=== PATIENT | female | born 1940 | race Caucasian/White ===

== ENCOUNTER 2019-05-17 21:06 | Emergency (ER) | payer MEDICARE ==
[~2019-05-17] VITALS: Ht 162.6 cm; Wt 100.0 kg
[~2019-05-17 21:06] MED LIST: AMLO10TA PO; FOLI1TAB16 PO; FURO20TA4 PO; GLIM4TAB4 PO; MAGN400C PO; MELO-102 PO; METF-316 PO; METO50TA17 PO; OMEG1CAP PO; PRED5TAB49 PO; [UNRECOGNIZED DRUG - CODE] PO
[2019-05-17 21:19] VITALS: BP 124/58
[2019-05-17 21:49] LABS: BASOPHILS # (AUTO) 0.1 X10'3 (0-0.2); EOSINOPHILS # (AUTO) 0.2 X10'3 (0-0.9); EOSINOPHILS % (AUTO) 1.7 % (0-6); HEMATOCRIT 39.7 % (35.0-45.0); HEMOGLOBIN 13.2 g/dl (12.0-16.0); LYMPHOCYTES # (AUTO) 4.7 X10'3 (1.1-4.8); LYMPHOCYTES % (AUTO) 33.4 % (21-51); MEAN CORPUSCULAR HEMOGLOBIN 33.3 PG (27.0-31.0); MEAN CORPUSCULAR HGB CONC 33.2 g/dL (33.0-36.5); MEAN CORPUSCULAR VOLUME 100.1 FL (78-98); MEAN PLATELET VOLUME 7.5 FL (7.4-10.4); MONOCYTES # (AUTO) 0.9 X10'3 (0-0.9); MONOCYTES % (AUTO) 6.2 % (2-12); NEUTROPHILS % (AUTO) 57.7 % (42-75); PLATELET COUNT 369 X10'3 (140-440); RED BLOOD COUNT 3.96 X10'6 (4.20-5.60); RED CELL DISTRIBUTION WIDTH 15.5 % (11.5-14.5)
[2019-05-17 22:01] LABS: ALANINE AMINOTRANSFERASE 49 U/L (12-78); ALBUMIN 3.2 G/DL (3.4-5.0); ALBUMIN/GLOBULIN RATIO 0.7 (1.1-1.5); ALKALINE PHOSPHATASE 103 IU/L (46-116); ANION GAP 11 (8-16); ASPARTATE AMINO TRANSFERASE 25 U/L (10-37); BILIRUBIN,TOTAL 0.6 MG/DL (0.1-1.0); BLOOD UREA NITROGEN 27 MG/DL (7-18); BUN/CREATININE RATIO 22.5 (6.6-38.0); CALCIUM 9.9 MG/DL (8.5-10.1); CHLORIDE 98 MMOL/L (99-107); GLUCOSE 204 MG/DL (70-104); LIPASE 305 U/L (73-393); POTASSIUM 4.2 MMOL/L (3.5-5.1); SODIUM 134 MMOL/L (135-145); TOTAL PROTEIN 7.5 G/DL (6.4-8.2); eGFR 44 ML/MIN
[2019-05-17 22:09] LABS: CLARITY,URINE CLOUDY (Clear); COLOR,URINE YELLOW (Yellow); GLUCOSE, URINE NEGATIVE (Neg); KETONES,URINE TRACE mg/dl (Neg); LEUKOCYTE ESTERASE ,URINE MODERATE (Neg); NITRITES, URINE POSITIVE (Neg); OCCULT BLOOD,URINE MODERATE (Neg); PH,URINE 5.5 (4.8-8.0); PROTEIN,URINE 100 mg/dl (Neg); UA COLLECTION TYPE STRAIGHT CATH; UROBILINOGEN,URINE 0.2 E.U/dL (0.2-1.0)
[2019-05-17 22:15] LABS: BACTERIA,URINE 3+ /HPF (Neg); RBC,URINE TNTC /HPF (0-2); SQUAMOUS EPITHELIAL CELL,UR FEW /LPF (FEW)
[2019-05-17] MEDS ORDERED: CefTRIAXone 2gm/D5W 50ml 50 ML IV ONE (22:15)
[2019-05-17] MEDS ORDERED: CefTRIAXone 1000mg IM Kit (w/lidocaine diluent) IM ONE (22:20)
[2019-05-17] MEDS ORDERED: SULF1TAB49 PO (22:31)
== END 2019-05-17 22:39 | disposition home or self-care (01) ==
LOC: ER 21:06
DX: N39.0 Urinary tract infection, site not specified (principal); E78.00 Pure hypercholesterolemia, unspecified; I10 Essential (primary) hypertension; E11.9 Type 2 diabetes mellitus without complications; Z79.899 Other long term (current) drug therapy; Z87.440 Personal history of urinary (tract) infections
CPT/HCPCS: 36415; 80053; 81001; 83690; 85025; 87088; 96372; 99283; J0696; P9612

== ENCOUNTER 2019-06-10 13:11 | Inpatient (IN) | payer MEDICARE, OTHER ==
[~2019-06-10] VITALS: Ht 162.6 cm; Wt 102.0 kg
[2019-06-10 13:49] LABS: BASOPHILS # (AUTO) 0.1 X10'3 (0-0.2); BASOPHILS % (AUTO) 0.7 % (0-1); EOSINOPHILS # (AUTO) 0.1 X10'3 (0-0.9); EOSINOPHILS % (AUTO) 1.1 % (0-6); HEMOGLOBIN 12.7 g/dl (12.0-16.0); LYMPHOCYTES # (AUTO) 2.4 X10'3 (1.1-4.8); MEAN CORPUSCULAR HEMOGLOBIN 32.7 PG (27.0-31.0); MEAN CORPUSCULAR HGB CONC 33.4 g/dL (33.0-36.5); MEAN PLATELET VOLUME 7.4 FL (7.4-10.4); MONOCYTES # (AUTO) 0.7 X10'3 (0-0.9); MONOCYTES % (AUTO) 5.5 % (2-12); NEUTROPHILS # (AUTO) 9.4 X10'3 (1.8-7.7); NEUTROPHILS % (AUTO) 73.7 % (42-75); PLATELET COUNT 411 X10'3 (140-440); RED BLOOD COUNT 3.88 X10'6 (4.20-5.60); RED CELL DISTRIBUTION WIDTH 15.2 % (11.5-14.5); WHITE BLOOD COUNT 12.8 X10'3 (4.5-11.0)
[2019-06-10] MEDS ORDERED: CefTRIAXone 2gm/D5W 50ml 50 ML IV ONE (14:00)
[2019-06-10] MEDS ORDERED: morphine 4 MG/ML inj SYRINge IV ONE (14:00)
[2019-06-10] MEDS ORDERED: normal saline 1000ML IV soln IV ONE (14:00)
[2019-06-10] MEDS ORDERED: ondansetron/PF 4mg/2ml inj IV ONE (14:00)
[2019-06-10 14:05] LABS: CLARITY,URINE SLIGHTLY CLOUDY (Clear); COLOR,URINE STRAW (Yellow); GLUCOSE, URINE >=1000 mg/dl (Neg); KETONES,URINE NEGATIVE (Neg); LEUKOCYTE ESTERASE ,URINE NEGATIVE (Neg); NITRITES, URINE POSITIVE (Neg); OCCULT BLOOD,URINE NEGATIVE (Neg); PH,URINE 5.5 (4.8-8.0); PROTEIN,URINE TRACE mg/dl (Neg); UROBILINOGEN,URINE 0.2 E.U/dL (0.2-1.0)
[2019-06-10 14:08] LABS: PARTIAL THROMBOPLASTIN TIME 23 SECONDS (22-32)
[2019-06-10 14:08] LABS: UA COLLECTION TYPE OTHER
[2019-06-10 14:09] LABS: ALANINE AMINOTRANSFERASE 23 U/L (12-78); ALBUMIN 2.8 G/DL (3.4-5.0); ALBUMIN/GLOBULIN RATIO 0.7 (1.1-1.5); ALKALINE PHOSPHATASE 119 IU/L (46-116); ANION GAP 14 (8-16); ASPARTATE AMINO TRANSFERASE 21 U/L (10-37); BILIRUBIN,TOTAL 0.6 MG/DL (0.1-1.0); BLOOD UREA NITROGEN 26 MG/DL (7-18); BUN/CREATININE RATIO 23.4 (6.6-38.0); CALCIUM 9.5 MG/DL (8.5-10.1); CHLORIDE 98 MMOL/L (99-107); CREATININE 1.11 MG/DL (0.40-0.90); GLUCOSE 327 MG/DL (70-104); POTASSIUM 4.3 MMOL/L (3.5-5.1); SODIUM 132 MMOL/L (135-145); TOTAL CARBON DIOXIDE 20.5 MMOL/L (24-32); eGFR 48 ML/MIN
[2019-06-10 14:11] LABS: BACTERIA,URINE 4+ /HPF (Neg); MUCUS STRANDS NONE SEEN /LPF (Neg); RBC,URINE NONE SEEN /HPF (0-2); SQUAMOUS EPITHELIAL CELL,UR FEW /LPF (FEW); WBC CLUMPS,URINE MODERATE /HPF (NEGATIVE); WBC,URINE 30-50 /HPF (0-4)
[2019-06-10] MEDS ORDERED: magnesium 2GM in 50ml NS 50 ML IV ONE (14:40)
[2019-06-10] MEDS ORDERED: mag hydrox/Alum hydrox/simeth 30ml oral suspension PO PRN (14:50)
[2019-06-10] MEDS ORDERED: methylPREDNISolone sod succ 125mg/2ml vial IV ONE (14:50)
[2019-06-10] MEDS ORDERED: potassium Cl 20 mEq SR tablet PO PRN ×2 (14:50)
[2019-06-10] MEDS ORDERED: acetaminophen 325mg tablet PO PRN (14:50)
[2019-06-10] MEDS ORDERED: glucagon, human recombinant 1mg kit SUBCUT PRN (14:50)
[2019-06-10] MEDS ORDERED: ipratropium/albuterol 3ml nebule NEB PRN (14:50)
[2019-06-10] MEDS ORDERED: dextrose 50%-water 50ml dispensing syringe IV PRN ×2 (14:50)
[2019-06-10] MEDS ORDERED: ondansetron/PF 4mg/2ml inj IV PRN (14:50)
[2019-06-10] MEDS ORDERED: MESSAGE TO PHARMACY PO ONE (14:50)
[2019-06-10] MEDS ORDERED: magnesium 4gm in 100ml NS 100 ML IV PRN (14:50)
[2019-06-10] MEDS ORDERED: potassium CL 10mEq/100ml bag 100 ML IV PRN ×2 (14:50)
[2019-06-10] MEDS ORDERED: magnesium 2GM in 50ml NS 50 ML IV PRN (14:50)
[2019-06-10] MEDS ORDERED: dextrose ORAL solution 15 GM/59 ML bottle PO PRN ×2 (14:50)
[2019-06-10] MEDS ORDERED: PRED5TAB49 PO (14:53)
[2019-06-10] MEDS ORDERED: ALLO300T2 PO (14:53)
[2019-06-10] MEDS ORDERED: ONDA8TAB6 PO (14:53)
[2019-06-10] MEDS ORDERED: DULO60CA65 PO (14:53)
[2019-06-10] MEDS ORDERED: METH2.5T PO (14:53)
[2019-06-10] MEDS ORDERED: TELM80TA9 PO (14:53)
[2019-06-10] MEDS ORDERED: METO50TA16 PO (14:53)
[2019-06-10] MEDS ORDERED: INSU200I4 SQ (14:53)
[2019-06-10] MEDS ORDERED: MELO-102 PO (14:53)
[2019-06-10] MEDS ORDERED: ADAL40PE SUBCUT (14:53)
[2019-06-10] MEDS ORDERED: AMLO10TA13 PO (14:53)
[2019-06-10] MEDS ORDERED: OMEG-107 PO (14:53)
[2019-06-10] MEDS ORDERED: CYAN1TAB16 PO ×2 (14:53→15:05)
[2019-06-10] MEDS ORDERED: ondansetron 4mg rapidly disintigrating tab PO PRN (15:00)
[2019-06-10 15:07] LABS: D-DIMER 1.46 MG/L FEU (0-0.50)
[2019-06-10] MEDS ORDERED: FOLI0.4T14 PO (15:07)
--- NOTE | 2019-06-10 15:38 | NUR ---
ATTEMPTED TO GIVE REPORT TO NURSE ON PCU. NURSE IS UNAVAILABLE AT THIS TIME.
--- NOTE | 2019-06-10 16:00 | NUR ---
TC REPORT TO CHRIS RAZA ON PCU.
[2019-06-10 16:18] LABS: ALBUMIN 2.5 G/DL (3.4-5.0); ANION GAP 15 (8-16); BLOOD UREA NITROGEN 25 MG/DL (7-18); BUN/CREATININE RATIO 24.8 (6.6-38.0); CALCIUM 9.2 MG/DL (8.5-10.1); CHLORIDE 99 MMOL/L (99-107); CREATININE 1.01 MG/DL (0.40-0.90); GLUCOSE 311 MG/DL (70-104); POTASSIUM 4.2 MMOL/L (3.5-5.1); SODIUM 132 MMOL/L (135-145); TOTAL CARBON DIOXIDE 18.1 MMOL/L (24-32); eGFR 53 ML/MIN
[2019-06-10 16:49] LABS: HEMOGLOBIN A1C 8.4 % (4.5-6.2)
[2019-06-10] MEDS: normal saline 1000ml 1,000 ML IV SCH (16:54)
[2019-06-10 16:57] VITALS: BP 167/85
[2019-06-10] MEDS ORDERED: iohexol 350MG/ML 100ml bottle IV ONE (17:01)
--- NOTE | 2019-06-10 17:20 | NUR ---
Patient admitted to room PCU 3021 from ED. I have received report from Anastacia PEREZ and had the opportunity to ask questions and assume patient care. Pt transferred from [facility] to bed using FWW, MRSA swab collected, pt is in bed with family at bedside, will continue to monitor.
[2019-06-10 18:00] VITALS: BP 158/76
--- NOTE | 2019-06-10 18:27 | NUR ---
Patient in room PCU 3021. I have received report from Esperanza PEREZ and had the opportunity to ask questions and assume patient care.
--- NOTE | 2019-06-10 18:29 | NUR ---
Problems reprioritized. Patient report given, questions answered & plan of care reviewed with Malia PEREZ.
[2019-06-10] MEDS: insulin Lispro (HumaLOG) vial - multi-dose SQ SCH ×2 (19:15→21:24)
[2019-06-10] MEDS: metoprolol tartrate 50mg tablet PO SCH (19:41)
[2019-06-10] MEDS: omega-3 acid ethyl esters 1GM capsule PO SCH (19:41)
[2019-06-10] MEDS: insulin glargine (Lantus) pen - multi-dose SQ SCH (21:22)
[2019-06-10 22:00] VITALS: BP 123/67
[2019-06-11] MEDS: normal saline 1000ml 1,000 ML IV SCH (01:32)
[2019-06-11 01:37] LABS: BASOPHILS % (AUTO) 0.2 % (0-1); EOSINOPHILS % (AUTO) 0 % (0-6); HEMATOCRIT 34.8 % (35.0-45.0); HEMOGLOBIN 11.9 g/dl (12.0-16.0); LYMPHOCYTES # (AUTO) 1.3 X10'3 (1.1-4.8); LYMPHOCYTES % (AUTO) 14.8 % (21-51); MEAN CORPUSCULAR HEMOGLOBIN 32.9 PG (27.0-31.0); MEAN CORPUSCULAR HGB CONC 34.1 g/dL (33.0-36.5); MEAN CORPUSCULAR VOLUME 96.5 FL (78-98); MEAN PLATELET VOLUME 7.5 FL (7.4-10.4); MONOCYTES # (AUTO) 0.1 X10'3 (0-0.9); MONOCYTES % (AUTO) 1.4 % (2-12); NEUTROPHILS # (AUTO) 7.5 X10'3 (1.8-7.7); NEUTROPHILS % (AUTO) 83.6 % (42-75); PLATELET COUNT 408 X10'3 (140-440); RED BLOOD COUNT 3.61 X10'6 (4.20-5.60); RED CELL DISTRIBUTION WIDTH 14.7 % (11.5-14.5)
[2019-06-11 01:50] LABS: ALANINE AMINOTRANSFERASE 22 U/L (12-78); ALBUMIN 2.4 G/DL (3.4-5.0); ALBUMIN/GLOBULIN RATIO 0.6 (1.1-1.5); ALKALINE PHOSPHATASE 116 IU/L (46-116); ANION GAP 13 (8-16); ASPARTATE AMINO TRANSFERASE 22 U/L (10-37); BILIRUBIN,TOTAL 0.4 MG/DL (0.1-1.0); BLOOD UREA NITROGEN 23 MG/DL (7-18); BUN/CREATININE RATIO 19.5 (6.6-38.0); CALCIUM 9.3 MG/DL (8.5-10.1); CHLORIDE 99 MMOL/L (99-107); CREATININE 1.18 MG/DL (0.40-0.90); GLUCOSE 317 MG/DL (70-104); POTASSIUM 4.8 MMOL/L (3.5-5.1); SODIUM 134 MMOL/L (135-145); TOTAL CARBON DIOXIDE 21.7 MMOL/L (24-32); TOTAL PROTEIN 6.5 G/DL (6.4-8.2); eGFR 44 ML/MIN
[2019-06-11 01:53] LABS: MAGNESIUM 1.5 MG/DL (1.5-2.4)
[2019-06-11 02:00] VITALS: BP_SYST 119; BP_SYST 127; BP_DIAS 71; BP_DIAS 75
[2019-06-11 06:00] VITALS: BP 145/65
--- NOTE | 2019-06-11 06:20 | NUR ---
Problems reprioritized. Patient report given, questions answered & plan of care reviewed with Esperanza PEREZ.
--- NOTE | 2019-06-11 06:48 | NUR ---
Patient in room PCU 3021. I have received report from Malia PEREZ and had the opportunity to ask questions and assume patient care.
[2019-06-11] MEDS: omega-3 acid ethyl esters 1GM capsule PO SCH ×2 (07:39→19:18)
[2019-06-11] MEDS: predniSONE 20 mg tablet PO SCH (07:39)
[2019-06-11] MEDS: duloxetine 30mg CAPSULE.DR PO SCH (07:40)
[2019-06-11] MEDS: allopurinol 300 MG tablet PO SCH (07:40)
[2019-06-11] MEDS: metoprolol tartrate 50mg tablet PO SCH ×2 (07:40→19:17)
[2019-06-11] MEDS: folic acid 1mg tablet PO SCH (07:40)
[2019-06-11] MEDS: losartan 50mg tablet PO SCH (07:41)
[2019-06-11] MEDS: amLODIPine 5mg tablet PO SCH (07:41)
[2019-06-11] MEDS: enoxaparin 40mg/0.4ml syringe SQ SCH (07:42)
[2019-06-11] MEDS: naproxen 500mg tablet PO SCH ×2 (07:50→19:17)
[2019-06-11] MEDS: K and/or MAG REPLACEMENT MC SCH (07:51)
[2019-06-11] MEDS ORDERED: PYRIDOXINE PO SCH (08:00)
[2019-06-11] MEDS ORDERED: CYANOCOBALAMIN PO SCH (08:00)
[2019-06-11] MEDS ORDERED: [UNRECOGNIZED DRUG - OTHER] PO SCH (08:00)
[2019-06-11] MEDS ORDERED: CefTRIAXone/D5W-Rocephin 1gm 50 ML IV SCH (08:00)
[2019-06-11] MEDS: insulin Lispro (HumaLOG) vial - multi-dose SQ SCH ×4 (08:21→21:32)
[2019-06-11 11:00] VITALS: BP 148/72
--- NOTE | 2019-06-11 12:33 | NUR ---
PAGER ID: [phone] MESSAGE: [phone] Mary Suero: CARAI Most recent Lactic Acid is 4.7. Thanks Esperanza [phone]
--- NOTE | 2019-06-11 14:57 | NUR ---
PAGER ID: [phone] MESSAGE: [phone] Mary Suero: CARAI Most recent Lactic is 5.2, pt is asymptomatic denies any pain or discomfort. Thanks Esperanza [phone]
[2019-06-11 15:00] VITALS: BP 129/58
[2019-06-11] MEDS: sodium chloride 0.45% 1,000 ML IV SCH (15:18)
[2019-06-11 18:00] VITALS: BP 143/63
--- NOTE | 2019-06-11 18:26 | NUR ---
DM consult; patient has A1c of 8.4, patient seen at bedside and given written DM education consult with verbal review and referral to outpatient DM education class on thursday. Addendum: 06/11/19 at [address] Amended: Links added.
--- NOTE | 2019-06-11 18:28 | NUR ---
Problems reprioritized. Patient report given, questions answered & plan of care reviewed with Malia PEREZ.
--- NOTE | 2019-06-11 18:30 | NUR ---
Patient in room PCU 3021. I have received report from Esperanza PEREZ and had the opportunity to ask questions and assume patient care.
[2019-06-11] MEDS: lactobacillus rhamnosus 10,000 MMU CELLS/CAPSULE PO SCH (19:17)
[2019-06-11] MEDS: insulin glargine (Lantus) pen - multi-dose SQ SCH (21:29)
[2019-06-11] MEDS: temazepam 15mg capsule PO PRN (21:33)
[2019-06-11 22:00] VITALS: BP 140/70
[2019-06-12] MEDS: sodium chloride 0.45% 1,000 ML IV SCH ×3 (01:45→21:05)
[2019-06-12 02:00] VITALS: BP 139/70
[2019-06-12 05:13] LABS: BASOPHILS # (AUTO) 0.2 X10'3 (0-0.2); EOSINOPHILS # (AUTO) 0.1 X10'3 (0-0.9); EOSINOPHILS % (AUTO) 0.6 % (0-6); HEMATOCRIT 36.1 % (35.0-45.0); LYMPHOCYTES # (AUTO) 4.1 X10'3 (1.1-4.8); MEAN CORPUSCULAR HEMOGLOBIN 32.6 PG (27.0-31.0); MEAN CORPUSCULAR HGB CONC 33.3 g/dL (33.0-36.5); MEAN CORPUSCULAR VOLUME 97.8 FL (78-98); MEAN PLATELET VOLUME 7.5 FL (7.4-10.4); MONOCYTES # (AUTO) 1.2 X10'3 (0-0.9); MONOCYTES % (AUTO) 6.8 % (2-12); NEUTROPHILS # (AUTO) 12.8 X10'3 (1.8-7.7); NEUTROPHILS % (AUTO) 69.6 % (42-75); PLATELET COUNT 454 X10'3 (140-440); RED BLOOD COUNT 3.69 X10'6 (4.20-5.60); RED CELL DISTRIBUTION WIDTH 15.1 % (11.5-14.5); WHITE BLOOD COUNT 18.4 X10'3 (4.5-11.0)
[2019-06-12 05:29] LABS: ALANINE AMINOTRANSFERASE 19 U/L (12-78); ALBUMIN 2.6 G/DL (3.4-5.0); ALBUMIN/GLOBULIN RATIO 0.7 (1.1-1.5); ALKALINE PHOSPHATASE 102 IU/L (46-116); ANION GAP 10 (8-16); ASPARTATE AMINO TRANSFERASE 18 U/L (10-37); BILIRUBIN,TOTAL 0.4 MG/DL (0.1-1.0); BLOOD UREA NITROGEN 30 MG/DL (7-18); BUN/CREATININE RATIO 35.3 (6.6-38.0); CALCIUM 9.7 MG/DL (8.5-10.1); CHLORIDE 102 MMOL/L (99-107); CREATININE 0.85 MG/DL (0.40-0.90); GLUCOSE 147 MG/DL (70-104); MAGNESIUM 1.4 MG/DL (1.5-2.4); POTASSIUM 3.9 MMOL/L (3.5-5.1); SODIUM 135 MMOL/L (135-145); TOTAL PROTEIN 6.4 G/DL (6.4-8.2); eGFR 65 ML/MIN
--- NOTE | 2019-06-12 06:16 | NUR ---
Problems reprioritized. Patient report given, questions answered & plan of care reviewed with Dinora PEREZ.
[2019-06-12 07:00] VITALS: BP 147/56
--- NOTE | 2019-06-12 07:01 | NUR ---
Patient in room PCU 3021. I have received report from Selena and had the opportunity to ask questions and assume patient care.
--- NOTE | 2019-06-12 07:45 | NUR ---
LAB VALUE RECEIVED FROM MICRO/LAB, REPORTED TO PRIMARY RN.
--- NOTE | 2019-06-12 08:11 | NUR ---
Notified Dr. Worthy of notification of MDRO from the lab within 10 minutes of call. MD reviewing antibiotic therapy at this time. Iso sign posted, patient and family at bedside educated. Will continue to monitor.
[2019-06-12] MEDS: omega-3 acid ethyl esters 1GM capsule PO SCH ×2 (08:20→19:10)
[2019-06-12] MEDS: naproxen 500mg tablet PO SCH ×2 (08:20→19:10)
[2019-06-12] MEDS: magnesium Cl slow-release 64mg tablet PO PRN ×2 (08:21→19:11)
[2019-06-12] MEDS: lactobacillus rhamnosus 10,000 MMU CELLS/CAPSULE PO SCH ×2 (08:21→19:10)
[2019-06-12] MEDS: duloxetine 30mg CAPSULE.DR PO SCH (08:21)
[2019-06-12] MEDS: allopurinol 300 MG tablet PO SCH (08:21)
[2019-06-12] MEDS: predniSONE 20 mg tablet PO SCH (08:21)
[2019-06-12] MEDS: folic acid 1mg tablet PO SCH (08:21)
[2019-06-12] MEDS: losartan 50mg tablet PO SCH (08:22)
[2019-06-12] MEDS: amLODIPine 5mg tablet PO SCH (08:22)
[2019-06-12] MEDS: enoxaparin 40mg/0.4ml syringe SQ SCH (08:22)
[2019-06-12] MEDS: K and/or MAG REPLACEMENT MC SCH (08:32)
[2019-06-12] MEDS: metoprolol tartrate 50mg tablet PO SCH ×2 (09:49→19:11)
[2019-06-12] MEDS: ciprofloxacin lact 400MG/200ML 200 ML IV SCH ×2 (09:49→19:10)
[2019-06-12] MEDS: insulin Lispro (HumaLOG) vial - multi-dose SQ SCH ×3 (10:48→21:26)
[2019-06-12 11:00] VITALS: BP 140/78
[2019-06-12 15:00] VITALS: BP 164/89
--- NOTE | 2019-06-12 15:00 | NUR ---
Patient in room PCU 3021. I have received report from CHRIS Farias and had the opportunity to ask questions and assume patient care.
--- NOTE | 2019-06-12 18:12 | NUR ---
Problems reprioritized. Patient report given, questions answered & plan of care reviewed with CHRIS Issa.
--- NOTE | 2019-06-12 18:29 | NUR ---
Patient in room PCU 3021. I have received report from CHRIS Black and had the opportunity to ask questions and assume patient care. Patient awake for bedside report. 1/2 NS infusing at 100 mL/hr per provider order. On room air and stable at this time. Will continue to monitor closely.
[2019-06-12 19:00] VITALS: BP_SYST 152
[2019-06-12] MEDS: insulin glargine (Lantus) pen - multi-dose SQ SCH (21:25)
[2019-06-12] MEDS: temazepam 15mg capsule PO PRN (21:26)
[2019-06-12 23:00] VITALS: BP 118/68
[2019-06-13 03:00] VITALS: BP 133/72
[2019-06-13 06:20] LABS: BASOPHILS # (AUTO) 0.1 X10'3 (0-0.2); BASOPHILS % (AUTO) 0.3 % (0-1); EOSINOPHILS # (AUTO) 0.2 X10'3 (0-0.9); EOSINOPHILS % (AUTO) 1.3 % (0-6); HEMATOCRIT 36.5 % (35.0-45.0); HEMOGLOBIN 12.2 g/dl (12.0-16.0); LYMPHOCYTES # (AUTO) 4.2 X10'3 (1.1-4.8); LYMPHOCYTES % (AUTO) 22.7 % (21-51); MEAN CORPUSCULAR HEMOGLOBIN 32.6 PG (27.0-31.0); MEAN CORPUSCULAR HGB CONC 33.4 g/dL (33.0-36.5); MEAN CORPUSCULAR VOLUME 97.7 FL (78-98); MEAN PLATELET VOLUME 7.7 FL (7.4-10.4); MONOCYTES # (AUTO) 1.8 X10'3 (0-0.9); MONOCYTES % (AUTO) 9.4 % (2-12); NEUTROPHILS # (AUTO) 12.4 X10'3 (1.8-7.7); NEUTROPHILS % (AUTO) 66.3 % (42-75); PLATELET COUNT 411 X10'3 (140-440); RED BLOOD COUNT 3.73 X10'6 (4.20-5.60); RED CELL DISTRIBUTION WIDTH 14.7 % (11.5-14.5); WHITE BLOOD COUNT 18.7 X10'3 (4.5-11.0)
--- NOTE | 2019-06-13 06:23 | NUR ---
Problems reprioritized. Patient report given, questions answered & plan of care reviewed with CHRIS Hamilton and CHRIS Espinal.
[2019-06-13 06:24] LABS: ALANINE AMINOTRANSFERASE 18 U/L (12-78); ALBUMIN 2.5 G/DL (3.4-5.0); ALBUMIN/GLOBULIN RATIO 0.7 (1.1-1.5); ALKALINE PHOSPHATASE 98 IU/L (46-116); ANION GAP 10 (8-16); ASPARTATE AMINO TRANSFERASE 14 U/L (10-37); BILIRUBIN,TOTAL 0.4 MG/DL (0.1-1.0); BLOOD UREA NITROGEN 30 MG/DL (7-18); BUN/CREATININE RATIO 33.7 (6.6-38.0); CALCIUM 9.7 MG/DL (8.5-10.1); CHLORIDE 100 MMOL/L (99-107); CREATININE 0.89 MG/DL (0.40-0.90); GLUCOSE 130 MG/DL (70-104); MAGNESIUM 1.4 MG/DL (1.5-2.4); POTASSIUM 3.7 MMOL/L (3.5-5.1); SODIUM 132 MMOL/L (135-145); TOTAL CARBON DIOXIDE 21.9 MMOL/L (24-32); TOTAL PROTEIN 6.2 G/DL (6.4-8.2); eGFR 62 ML/MIN
--- NOTE | 2019-06-13 06:38 | NUR ---
Patient in room PCU 3021. I have received report from CHRIS Issa and had the opportunity to ask questions and assume patient care.
--- NOTE | 2019-06-13 06:40 | NUR ---
Patient in room PCU 3021. I have received report from Luis Manuel PEREZ and had the opportunity to ask questions and assume patient care. Patient asleep in bed. In no acute distress. Will continue to monitor.
[2019-06-13 07:00] VITALS: BP 130/75
[2019-06-13] MEDS: naproxen 500mg tablet PO SCH ×2 (07:30→19:53)
[2019-06-13] MEDS: ciprofloxacin lact 400MG/200ML 200 ML IV SCH ×2 (07:30→19:53)
[2019-06-13] MEDS: folic acid 1mg tablet PO SCH (07:30)
[2019-06-13] MEDS: predniSONE 20 mg tablet PO SCH (07:30)
[2019-06-13] MEDS: lactobacillus rhamnosus 10,000 MMU CELLS/CAPSULE PO SCH ×2 (07:30→19:53)
[2019-06-13] MEDS: allopurinol 300 MG tablet PO SCH (07:30)
[2019-06-13] MEDS: omega-3 acid ethyl esters 1GM capsule PO SCH ×2 (07:31→19:53)
[2019-06-13] MEDS: duloxetine 30mg CAPSULE.DR PO SCH (07:31)
[2019-06-13] MEDS: enoxaparin 40mg/0.4ml syringe SQ SCH (07:31)
[2019-06-13] MEDS: amLODIPine 5mg tablet PO SCH (07:32)
[2019-06-13] MEDS: metoprolol tartrate 50mg tablet PO SCH ×2 (07:32→19:57)
[2019-06-13] MEDS: losartan 50mg tablet PO SCH (07:32)
[2019-06-13] MEDS: K and/or MAG REPLACEMENT MC SCH (07:42)
[2019-06-13] MEDS: insulin Lispro (HumaLOG) vial - multi-dose SQ SCH ×3 (09:35→18:46)
[2019-06-13 11:00] VITALS: BP_SYST 114; BP_DIAS 7; BP_DIAS 70
[2019-06-13] MEDS: sodium chloride 0.45% 1,000 ML IV SCH ×2 (12:04→19:11)
[2019-06-13 15:00] VITALS: BP 148/75
[2019-06-13 18:00] VITALS: BP 123/71
--- NOTE | 2019-06-13 18:37 | NUR ---
Problems reprioritized. Patient report given, questions answered & plan of care reviewed with CHRIS Edwards.
--- NOTE | 2019-06-13 18:38 | NUR ---
Problems reprioritized. Patient report given, questions answered & plan of care reviewed with Grace PEREZ. Patient stable at transfer of care.
[2019-06-13] MEDS: docusate sod 100mg capsule PO PRN (21:01)
[2019-06-13] MEDS: temazepam 15mg capsule PO PRN (21:01)
[2019-06-13] MEDS: insulin glargine (Lantus) pen - multi-dose SQ SCH (21:07)
[2019-06-13 23:00] VITALS: BP 118/55
[2019-06-14] MEDS: sodium chloride 0.45% 1,000 ML IV SCH (00:13)
[2019-06-14 02:00] VITALS: BP 128/74
--- NOTE | 2019-06-14 06:04 | NUR ---
Report given to Joy PEREZ.
--- NOTE | 2019-06-14 06:15 | NUR ---
Patient in room PCU 3021. I have received report from CHRIS Long and had the opportunity to ask questions and assume patient care.
[2019-06-14 06:20] LABS: BASOPHILS # (AUTO) 0.1 X10'3 (0-0.2); BASOPHILS % (AUTO) 0.5 % (0-1); EOSINOPHILS # (AUTO) 0.3 X10'3 (0-0.9); EOSINOPHILS % (AUTO) 2.1 % (0-6); HEMATOCRIT 35.3 % (35.0-45.0); HEMOGLOBIN 11.7 g/dl (12.0-16.0); LYMPHOCYTES # (AUTO) 4.3 X10'3 (1.1-4.8); LYMPHOCYTES % (AUTO) 26.8 % (21-51); MEAN CORPUSCULAR HEMOGLOBIN 32.5 PG (27.0-31.0); MEAN CORPUSCULAR HGB CONC 33.1 g/dL (33.0-36.5); MEAN CORPUSCULAR VOLUME 98.1 FL (78-98); MEAN PLATELET VOLUME 7.7 FL (7.4-10.4); MONOCYTES # (AUTO) 1.7 X10'3 (0-0.9); MONOCYTES % (AUTO) 10.3 % (2-12); NEUTROPHILS # (AUTO) 9.7 X10'3 (1.8-7.7); NEUTROPHILS % (AUTO) 60.3 % (42-75); PLATELET COUNT 387 X10'3 (140-440); RED CELL DISTRIBUTION WIDTH 15.1 % (11.5-14.5); WHITE BLOOD COUNT 16.1 X10'3 (4.5-11.0)
--- NOTE | 2019-06-14 06:29 | NUR ---
Patient in room PCU 3021. I have received report from Grace PEREZ and had the opportunity to ask questions and assume patient care. Patient up to toilet with nursing staff. All immediate needs met at this time.
[2019-06-14 07:00] VITALS: BP 119/59
[2019-06-14 07:07] LABS: ALANINE AMINOTRANSFERASE 15 U/L (12-78); ALBUMIN 2.4 G/DL (3.4-5.0); ALBUMIN/GLOBULIN RATIO 0.7 (1.1-1.5); ALKALINE PHOSPHATASE 91 IU/L (46-116); ANION GAP 9 (8-16); ASPARTATE AMINO TRANSFERASE 14 U/L (10-37); BILIRUBIN,TOTAL 0.4 MG/DL (0.1-1.0); BLOOD UREA NITROGEN 31 MG/DL (7-18); BUN/CREATININE RATIO 33.3 (6.6-38.0); CALCIUM 9.8 MG/DL (8.5-10.1); CHLORIDE 102 MMOL/L (99-107); CREATININE 0.93 MG/DL (0.40-0.90); GLUCOSE 134 MG/DL (70-104); MAGNESIUM 1.3 MG/DL (1.5-2.4); POTASSIUM 4.3 MMOL/L (3.5-5.1); SODIUM 133 MMOL/L (135-145); TOTAL CARBON DIOXIDE 22.5 MMOL/L (24-32); eGFR 58 ML/MIN
[2019-06-14] MEDS ORDERED: magnesium 2GM in 50ml NS 50 ML IV PRN (07:25)
[2019-06-14] MEDS ORDERED: potassium Cl 20 mEq SR tablet PO PRN ×2 (07:25)
[2019-06-14] MEDS ORDERED: magnesium 4gm in 100ml NS 100 ML IV PRN (07:25)
[2019-06-14] MEDS ORDERED: magnesium Cl slow-release 64mg tablet PO PRN (07:25)
[2019-06-14] MEDS ORDERED: potassium CL 10mEq/100ml bag 100 ML IV PRN ×2 (07:25)
[2019-06-14] MEDS ORDERED: predniSONE 5mg tablet PO SCH (08:00)
[2019-06-14] MEDS: K and/or MAG REPLACEMENT MC SCH (08:00)
[2019-06-14] MEDS: ciprofloxacin lact 400MG/200ML 200 ML IV SCH (08:56)
[2019-06-14] MEDS: naproxen 500mg tablet PO SCH (08:56)
[2019-06-14] MEDS: amLODIPine 5mg tablet PO SCH (08:56)
[2019-06-14] MEDS: metoprolol tartrate 50mg tablet PO SCH (08:56)
[2019-06-14] MEDS: losartan 50mg tablet PO SCH (08:57)
[2019-06-14] MEDS: allopurinol 300 MG tablet PO SCH (08:57)
[2019-06-14] MEDS: lactobacillus rhamnosus 10,000 MMU CELLS/CAPSULE PO SCH (08:57)
[2019-06-14] MEDS: folic acid 1mg tablet PO SCH (08:57)
[2019-06-14] MEDS: duloxetine 30mg CAPSULE.DR PO SCH (08:57)
[2019-06-14] MEDS: enoxaparin 40mg/0.4ml syringe SQ SCH (08:58)
[2019-06-14] MEDS: omega-3 acid ethyl esters 1GM capsule PO SCH (09:02)
[2019-06-14] MEDS: docusate sod 100mg capsule PO PRN (09:02)
[2019-06-14] MEDS: insulin Lispro (HumaLOG) vial - multi-dose SQ SCH (09:18)
--- NOTE | 2019-06-14 09:29 | NUR ---
New order from Dr. Worthy: Nystatin powder
[2019-06-14 11:00] VITALS: BP 111/60
[2019-06-14] MEDS ORDERED: NYSPWD TP (12:02)
[2019-06-14] MEDS ORDERED: CIPR-230 PO (12:02)
[2019-06-14] MEDS ORDERED: nystatin 15 GM powder TP SCH (13:00)
--- NOTE | 2019-06-14 13:48 | NUR ---
Pt is stable for discharge per MD orders. All discharge instructions reviewed with pt and all questions were answered. New prescriptions called into pt's pharmacy. PIV discontinued, cannula intact. Tele monitor discontinued. Belongings collected and sent with pt. Pt transferred via wheelchair by hospital staff to [facility]. Discharged with daughter to home
--- NOTE | 2019-06-14 19:04 | NUR ---
[place] documentation: I have reviewed and agree with all interventions, assessments performed and documented by Kylie PEREZ. [place] Medication Administration: For this medication-pass time frame, all medication were reviewed, dispensed, administered and documented per hospital policy by Kylie PEREZ.
== END 2019-06-14 13:45 | disposition home health service (06) | DRG 872 ==
LOC: ER 13:12 → ED HOLD 14:56 → PCU 3S 16:15
PROVIDERS: ADMIT Family Medicine; ATTEND Family Medicine
PROC: B32T1ZZ Computerized Tomography (CT Scan) of Left Pulmonary Artery using Low Osmolar Contrast (ICD-10-PCS; principal; 2019-06-10)
PROC: B3201ZZ Computerized Tomography (CT Scan) of Thoracic Aorta using Low Osmolar Contrast (ICD-10-PCS; 2019-06-10)
PROC: B32S1ZZ Computerized Tomography (CT Scan) of Right Pulmonary Artery using Low Osmolar Contrast (ICD-10-PCS; 2019-06-10)
PROC: BW211ZZ Computerized Tomography (CT Scan) of Abdomen and Pelvis using Low Osmolar Contrast (ICD-10-PCS; 2019-06-10)
DX: A41.9 Sepsis, unspecified organism (principal); N39.0 Urinary tract infection, site not specified; E87.1 Hypo-osmolality and hyponatremia; Z16.24 Resistance to multiple antibiotics; J84.9 Interstitial pulmonary disease, unspecified; E11.9 Type 2 diabetes mellitus without complications; E78.00 Pure hypercholesterolemia, unspecified; R14.0 Abdominal distension (gaseous); B96.1 Klebsiella pneumoniae [K. pneumoniae] as the cause of diseases classified elsewhere; I10 Essential (primary) hypertension; N28.9 Disorder of kidney and ureter, unspecified; M06.9 Rheumatoid arthritis, unspecified; R00.0 Tachycardia, unspecified; M10.9 Gout, unspecified; Z79.4 Long term (current) use of insulin; Z79.899 Other long term (current) drug therapy; Z80.3 Family history of malignant neoplasm of breast; Z82.49 Family history of ischemic heart disease and other diseases of the circulatory system; Z83.3 Family history of diabetes mellitus; Z87.442 Personal history of urinary calculi; Z87.891 Personal history of nicotine dependence; Z90.710 Acquired absence of both cervix and uterus; Z90.49 Acquired absence of other specified parts of digestive tract
CPT/HCPCS: 36415; 71045; 71275; 74177; 80048; 80053; 81001; 82948; 83036; 83605; 83735; 83880; 84145; 84484; 85025; 85379; 85610; 85730; 87040; 87077; 87081; 87088; 87186; 93005; 94760; 96374; 97116; 97161; 97530; 97535; 99285; G0378; J0696; J0744; J1650; J1815; J2270; J2405; J2930; J3475; J7030; J7512; Q9967

== ENCOUNTER 2019-07-02 10:33 | Inpatient (IN) | payer MEDICARE, OTHER ==
[~2019-07-02] VITALS: Ht 162.6 cm; Wt 98.0 kg
[~2019-07-02 10:33] MED LIST changes: +ADAL40PE SUBCUT; +ALLO300T2 PO; -AMLO10TA PO; +AMLO10TA13 PO; +CIPR-230 PO; +DULO60CA65 PO; +FOLI0.4T14 PO; -FOLI1TAB16 PO; -FURO20TA4 PO; -GLIM4TAB4 PO; +INSU200I4 SQ; -MAGN400C PO; -METF-316 PO; +METH2.5T PO; +METO50TA16 PO; -METO50TA17 PO; +NYSPWD TP; +OMEG-107 PO; -OMEG1CAP PO; +ONDA8TAB6 PO; -PRED5TAB49 PO; +TELM80TA9 PO; -[UNRECOGNIZED DRUG - CODE] PO
[2019-07-02 11:11] LABS: BASOPHILS # (AUTO) 0.1 X10'3 (0-0.2); BASOPHILS % (AUTO) 0.9 % (0-1); EOSINOPHILS # (AUTO) 0.2 X10'3 (0-0.9); EOSINOPHILS % (AUTO) 2.1 % (0-6); HEMATOCRIT 39.9 % (35.0-45.0); HEMOGLOBIN 13.4 g/dl (12.0-16.0); LYMPHOCYTES # (AUTO) 2.5 X10'3 (1.1-4.8); LYMPHOCYTES % (AUTO) 24.8 % (21-51); MEAN CORPUSCULAR HEMOGLOBIN 32.2 PG (27.0-31.0); MEAN CORPUSCULAR HGB CONC 33.6 g/dL (33.0-36.5); MEAN CORPUSCULAR VOLUME 95.8 FL (78-98); MEAN PLATELET VOLUME 7.6 FL (7.4-10.4); MONOCYTES # (AUTO) 0.7 X10'3 (0-0.9); MONOCYTES % (AUTO) 7.4 % (2-12); NEUTROPHILS # (AUTO) 6.5 X10'3 (1.8-7.7); NEUTROPHILS % (AUTO) 64.8 % (42-75); PLATELET COUNT 357 X10'3 (140-440); RED BLOOD COUNT 4.16 X10'6 (4.20-5.60); RED CELL DISTRIBUTION WIDTH 14.5 % (11.5-14.5)
[2019-07-02 11:28] LABS: ALANINE AMINOTRANSFERASE 26 U/L (12-78); ALBUMIN 3.2 G/DL (3.4-5.0); ALBUMIN/GLOBULIN RATIO 0.8 (1.1-1.5); ALKALINE PHOSPHATASE 94 IU/L (46-116); ANION GAP 10 (8-16); ASPARTATE AMINO TRANSFERASE 16 U/L (10-37); BILIRUBIN,TOTAL 0.9 MG/DL (0.1-1.0); BLOOD UREA NITROGEN 20 MG/DL (7-18); BUN/CREATININE RATIO 20.4 (6.6-38.0); CALCIUM 9.9 MG/DL (8.5-10.1); CHLORIDE 101 MMOL/L (99-107); CREATININE 0.98 MG/DL (0.40-0.90); GLUCOSE 143 MG/DL (70-104); POTASSIUM 3.6 MMOL/L (3.5-5.1); SODIUM 134 MMOL/L (135-145); TOTAL CARBON DIOXIDE 23.1 MMOL/L (24-32); TOTAL PROTEIN 7.2 G/DL (6.4-8.2); eGFR 55 ML/MIN
[2019-07-02 12:22] LABS: CLARITY,URINE CLOUDY (Clear); COLOR,URINE YELLOW (Yellow); GLUCOSE, URINE NEGATIVE (Neg); KETONES,URINE NEGATIVE (Neg); LEUKOCYTE ESTERASE ,URINE MODERATE (Neg); NITRITES, URINE POSITIVE (Neg); OCCULT BLOOD,URINE SMALL (Neg); PH,URINE 5.5 (4.8-8.0); PROTEIN,URINE TRACE mg/dl (Neg); UROBILINOGEN,URINE 0.2 E.U/dL (0.2-1.0)
[2019-07-02 12:27] LABS: UA COLLECTION TYPE FOLEY CATH
[2019-07-02 12:28] LABS: BACTERIA,URINE 4+ /HPF (Neg); MUCUS STRANDS FEW /LPF (Neg); RBC,URINE 0-2 /HPF (0-2); SQUAMOUS EPITHELIAL CELL,UR FEW /LPF (FEW); WBC,URINE 30-50 /HPF (0-4)
[2019-07-02] MEDS ORDERED: ondansetron/PF 4mg/2ml inj IV PRN (12:55)
[2019-07-02] MEDS ORDERED: magnesium hydroxide 30ml (MOM) UD suspension PO PRN (12:55)
[2019-07-02] MEDS ORDERED: mag hydrox/Alum hydrox/simeth 30ml oral suspension PO PRN (12:55)
[2019-07-02] MEDS ORDERED: cefepime 2gm inj IV STA (12:56)
[2019-07-02] MEDS ORDERED: cefepime inj 2 GM in dextrose 5%-water 50ml 50 ML IV ONE (13:11)
[2019-07-02] MEDS: cefepime 2g/NS 100ml ADVANTAGE 100 ML IV SCH (13:35)
[2019-07-02] MEDS: normal saline 1000ml 1,000 ML IV SCH ×2 (13:37→22:52)
[2019-07-02] MEDS ORDERED: ondansetron/PF 4mg/2ml inj IV ONE (14:00)
[2019-07-02] MEDS: acetaminophen 325mg tablet PO PRN ×2 (14:14→23:10)
[2019-07-02] MEDS ORDERED: non-formulary drug (Ondansetron Hcl (Zofran) 1 TAB) PO PRN (17:15)
--- NOTE | 2019-07-02 17:52 | NUR ---
relieving RN for lunch, pt is resting quietly on gurney, waiting for bed assignment, family at bedside, pt is aware of plan to admit, waiting for bed assignment
[2019-07-02 18:00] VITALS: BP 121/50
--- NOTE | 2019-07-02 18:30 | NUR ---
Patient in room [facility]A 358. I have received report from Margaret PEREZ (ER) and had the opportunity to ask questions and assume patient care. Addendum: 07/03/19 at 0115 by Dotty Quinones RN Amended: Links added.
[2019-07-02] MEDS ORDERED: ondansetron 4mg rapidly disintigrating tab PO PRN (19:15)
[2019-07-02] MEDS: omega-3 acid ethyl esters 1GM capsule PO SCH (20:00)
--- NOTE | 2019-07-02 22:00 | NUR ---
Pt. requested for pain management with tylenol # 3 prn which is current pt. pain management regimen. Requested granted by Dr. Hammond. Order implemented and pt. aware. Addendum: 07/03/19 at 0718 by Dotty Quinones RN Amended: Links added.
[2019-07-02] MEDS: heparin, porcine 5000 units/ml vial SQ SCH (22:53)
[2019-07-02] MEDS: metoprolol tartrate 50mg tablet PO SCH (22:57)
[2019-07-03] VITALS: BP 129/63
[2019-07-03] MEDS: cefepime 2g/NS 100ml ADVANTAGE 100 ML IV SCH ×2 (01:22→13:10)
--- NOTE | 2019-07-03 05:00 | NUR ---
Pt. c/o pain x one medicated with p.o tylenol before getting an ordered for tylenol # 3 per pt. request. Afebrile this shift. Isolation precaution observed. NS running at 100ml/hr. Pt. reminded to press call light for help; pt. verbalized understanding. Addendum: 07/03/19 at 0726 by Dotty Quinones RN Amended: Links added.
[2019-07-03 05:11] LABS: ALBUMIN 2.6 G/DL (3.4-5.0); ANION GAP 9 (8-16); BLOOD UREA NITROGEN 20 MG/DL (7-18); BUN/CREATININE RATIO 20.2 (6.6-38.0); CALCIUM 9.1 MG/DL (8.5-10.1); CHLORIDE 104 MMOL/L (99-107); CREATININE 0.99 MG/DL (0.40-0.90); GLUCOSE 137 MG/DL (70-104); POTASSIUM 3.6 MMOL/L (3.5-5.1); SODIUM 136 MMOL/L (135-145); TOTAL CARBON DIOXIDE 22.8 MMOL/L (24-32); eGFR 54 ML/MIN
[2019-07-03 05:59] LABS: BASOPHILS # (AUTO) 0.1 X10'3 (0-0.2); EOSINOPHILS # (AUTO) 0.2 X10'3 (0-0.9); EOSINOPHILS % (AUTO) 2.4 % (0-6); HEMATOCRIT 34.2 % (35.0-45.0); HEMOGLOBIN 11.6 g/dl (12.0-16.0); LYMPHOCYTES # (AUTO) 3.2 X10'3 (1.1-4.8); LYMPHOCYTES % (AUTO) 33.8 % (21-51); MEAN CORPUSCULAR HEMOGLOBIN 32.7 PG (27.0-31.0); MEAN CORPUSCULAR HGB CONC 33.9 g/dL (33.0-36.5); MEAN CORPUSCULAR VOLUME 96.6 FL (78-98); MEAN PLATELET VOLUME 7.9 FL (7.4-10.4); MONOCYTES # (AUTO) 0.9 X10'3 (0-0.9); MONOCYTES % (AUTO) 9.3 % (2-12); NEUTROPHILS % (AUTO) 53.5 % (42-75); PLATELET COUNT 334 X10'3 (140-440); RED BLOOD COUNT 3.55 X10'6 (4.20-5.60); RED CELL DISTRIBUTION WIDTH 14.9 % (11.5-14.5); WHITE BLOOD COUNT 9.4 X10'3 (4.5-11.0)
[2019-07-03 07:00] VITALS: BP 128/62
[2019-07-03] MEDS ORDERED: acetaminophen w/codeine (30MG) #3 tablet PO PRN (07:15)
[2019-07-03] MEDS ORDERED: insulin glargine (Lantus) pen - multi-dose SQ SCH (08:00)
[2019-07-03] MEDS ORDERED: folic acid 0.4mg tablet PO SCH (08:00)
[2019-07-03] MEDS ORDERED: non-formulary drug (Duloxetine HCl 1 CAP) PO SCH (08:00)
[2019-07-03] MEDS ORDERED: non-formulary drug (Amlodipine Besylate 1 TAB) PO SCH (08:00)
[2019-07-03] MEDS: metoprolol tartrate 50mg tablet PO SCH ×2 (08:49→20:37)
[2019-07-03] MEDS: amLODIPine 5mg tablet PO SCH (08:49)
[2019-07-03] MEDS: duloxetine 30mg CAPSULE.DR PO SCH (08:49)
[2019-07-03] MEDS: folic acid 1mg tablet PO SCH (08:49)
[2019-07-03] MEDS: losartan 50mg tablet PO SCH (08:49)
[2019-07-03] MEDS: allopurinol 300 MG tablet PO SCH (08:49)
[2019-07-03] MEDS: omega-3 acid ethyl esters 1GM capsule PO SCH ×2 (08:50→20:37)
[2019-07-03] MEDS: heparin, porcine 5000 units/ml vial SQ SCH ×2 (08:50→20:37)
[2019-07-03] MEDS: normal saline 1000ml 1,000 ML IV SCH ×3 (10:38→20:43)
[2019-07-03 12:35] VITALS: BP 116/54
--- NOTE | 2019-07-03 18:24 | NUR ---
Problems reprioritized. Patient report given, questions answered & plan of care reviewed with CHRIS Carpio.
[2019-07-03] MEDS: acetaminophen w/codeine (30MG) #3 tablet PO PRN (18:35)
--- NOTE | 2019-07-03 19:17 | NUR ---
DM Consult: A1C 8.2. Pt seen by RD for written/verbal DM ed w/ RD contact information provided. Pt main concerns regarding total CHO alottment w/ meals. RD reviewed CHO portions sizing and recommended CHO range for meals and snacks as well as appropriate snack options. Pt able to provide diet at home including lower carb substitutions. RD encouraged pt to contact dietitian office/attend CDE course if further questions/concerns. Addendum: 07/03/19 at [address] Amended: Links added.
[2019-07-03 20:00] VITALS: BP 120/54
[2019-07-03] MEDS: insulin glargine (Lantus) pen - multi-dose SQ SCH (20:39)
--- NOTE | 2019-07-03 22:36 | NUR ---
Patient in room SIMA 358. I have received report from CHRIS Mcconnell and had the opportunity to ask questions and assume patient care. Addendum: 07/03/19 at 2237 by Nirmala Rosales RN Amended: Links added.
[2019-07-03 23:53] VITALS: BP 117/71
[2019-07-04] MEDS: cefepime 2g/NS 100ml ADVANTAGE 100 ML IV SCH (01:10)
[2019-07-04] MEDS: acetaminophen w/codeine (30MG) #3 tablet PO PRN ×3 (02:22→19:07)
[2019-07-04 05:34] LABS: BASOPHILS # (AUTO) 0.1 X10'3 (0-0.2); BASOPHILS % (AUTO) 1.2 % (0-1); EOSINOPHILS # (AUTO) 0.3 X10'3 (0-0.9); HEMATOCRIT 33.5 % (35.0-45.0); HEMOGLOBIN 11.3 g/dl (12.0-16.0); LYMPHOCYTES # (AUTO) 2.8 X10'3 (1.1-4.8); MEAN CORPUSCULAR HEMOGLOBIN 32.6 PG (27.0-31.0); MEAN CORPUSCULAR HGB CONC 33.8 g/dL (33.0-36.5); MEAN CORPUSCULAR VOLUME 96.6 FL (78-98); MEAN PLATELET VOLUME 7.7 FL (7.4-10.4); MONOCYTES # (AUTO) 0.8 X10'3 (0-0.9); MONOCYTES % (AUTO) 9.4 % (2-12); NEUTROPHILS # (AUTO) 4.6 X10'3 (1.8-7.7); NEUTROPHILS % (AUTO) 53.4 % (42-75); PLATELET COUNT 291 X10'3 (140-440); RED BLOOD COUNT 3.47 X10'6 (4.20-5.60); RED CELL DISTRIBUTION WIDTH 14.5 % (11.5-14.5); WHITE BLOOD COUNT 8.7 X10'3 (4.5-11.0)
[2019-07-04 05:40] LABS: ALBUMIN 2.6 G/DL (3.4-5.0); ANION GAP 6 (8-16); BLOOD UREA NITROGEN 15 MG/DL (7-18); BUN/CREATININE RATIO 18.8 (6.6-38.0); CALCIUM 9.6 MG/DL (8.5-10.1); CHLORIDE 106 MMOL/L (99-107); GLUCOSE 136 MG/DL (70-104); POTASSIUM 3.6 MMOL/L (3.5-5.1); SODIUM 136 MMOL/L (135-145); TOTAL CARBON DIOXIDE 24.2 MMOL/L (24-32); eGFR 70 ML/MIN
[2019-07-04 06:00] VITALS: BP 134/65
--- NOTE | 2019-07-04 06:40 | NUR ---
Problems reprioritized. Patient report given, questions answered & plan of care reviewed with CHRIS Silva. Addendum: 07/04/19 at 0640 by Nirmala Rosales RN Amended: Links added.
--- NOTE | 2019-07-04 06:50 | NUR ---
Patient in room SIMA 358. I have received report from CHRIS Silvestre and had the opportunity to ask questions and assume patient care.
[2019-07-04] MEDS: metoprolol tartrate 50mg tablet PO SCH ×2 (08:39→19:06)
[2019-07-04] MEDS: losartan 50mg tablet PO SCH (08:40)
[2019-07-04] MEDS: omega-3 acid ethyl esters 1GM capsule PO SCH ×2 (08:40→19:06)
[2019-07-04] MEDS: allopurinol 300 MG tablet PO SCH (08:40)
[2019-07-04] MEDS: duloxetine 30mg CAPSULE.DR PO SCH (08:40)
[2019-07-04] MEDS: folic acid 1mg tablet PO SCH (08:40)
[2019-07-04] MEDS: amLODIPine 5mg tablet PO SCH (08:40)
[2019-07-04] MEDS: heparin, porcine 5000 units/ml vial SQ SCH ×2 (08:41→19:06)
[2019-07-04] MEDS: normal saline 1000ml 1,000 ML IV SCH ×2 (08:47→19:11)
[2019-07-04] MEDS ORDERED: NOVLG SUBCUT (10:52)
[2019-07-04] MEDS ORDERED: PRE1T PO (10:55)
[2019-07-04 11:00] VITALS: BP 121/63
[2019-07-04] MEDS: MEROPENEM 1GM/NS 50ML IVPB 50 ML IV SCH ×2 (16:02→23:30)
--- NOTE | 2019-07-04 18:15 | NUR ---
Problems reprioritized. Patient report given, questions answered & plan of care reviewed with CHRIS Silvestre.
[2019-07-04 20:00] VITALS: BP 138/70
[2019-07-04] MEDS: insulin glargine (Lantus) pen - multi-dose SQ SCH (20:37)
[2019-07-05] VITALS: BP 158/83
[2019-07-05] MEDS: acetaminophen w/codeine (30MG) #3 tablet PO PRN ×2 (01:21→08:16)
[2019-07-05] MEDS: normal saline 1000ml 1,000 ML IV SCH (05:57)
[2019-07-05 06:03] LABS: EOSINOPHILS # (AUTO) 0.3 X10'3 (0-0.9); HEMOGLOBIN 10.9 g/dl (12.0-16.0); LYMPHOCYTES # (AUTO) 2.9 X10'3 (1.1-4.8); MEAN PLATELET VOLUME 7.2 FL (7.4-10.4); RED CELL DISTRIBUTION WIDTH 14.7 % (11.5-14.5); WHITE BLOOD COUNT 7.5 X10'3 (4.5-11.0)
[2019-07-05 06:05] LABS: BASOPHILS % (AUTO) 0.4 % (0-1); EOSINOPHILS % (AUTO) 4.2 % (0-6); HEMATOCRIT 31.8 % (35.0-45.0); MEAN CORPUSCULAR HEMOGLOBIN 32.8 PG (27.0-31.0); MEAN CORPUSCULAR HGB CONC 34.3 g/dL (33.0-36.5); MEAN CORPUSCULAR VOLUME 95.5 FL (78-98); MONOCYTES # (AUTO) 0.7 X10'3 (0-0.9); MONOCYTES % (AUTO) 9.5 % (2-12); NEUTROPHILS # (AUTO) 3.6 X10'3 (1.8-7.7); NEUTROPHILS % (AUTO) 47.9 % (42-75); PLATELET COUNT 290 X10'3 (140-440); RED BLOOD COUNT 3.33 X10'6 (4.20-5.60)
--- NOTE | 2019-07-05 06:06 | NUR ---
Problems reprioritized. Patient report given, questions answered & plan of care reviewed with CHRIS Lovell. Addendum: 07/05/19 at 0613 by Nirmala Rosales RN Amended: Links added.
[2019-07-05 06:16] LABS: ALBUMIN 2.3 G/DL (3.4-5.0); ANION GAP 10 (8-16); BLOOD UREA NITROGEN 12 MG/DL (7-18); BUN/CREATININE RATIO 17.9 (6.6-38.0); CALCIUM 9.3 MG/DL (8.5-10.1); CHLORIDE 105 MMOL/L (99-107); CREATININE 0.67 MG/DL (0.40-0.90); GLUCOSE 121 MG/DL (70-104); POTASSIUM 3.7 MMOL/L (3.5-5.1); SODIUM 137 MMOL/L (135-145); TOTAL CARBON DIOXIDE 22.2 MMOL/L (24-32); eGFR 85 ML/MIN
--- NOTE | 2019-07-05 06:17 | NUR ---
Problems reprioritized. Patient report given, questions answered & plan of care reviewed with CHRIS Lovell. Addendum: 07/05/19 at 0618 by Nirmala Rosales RN Amended: Links added.
--- NOTE | 2019-07-05 06:18 | NUR ---
Patient in room SIMA 358. I have received report from CHRIS Carpio and had the opportunity to ask questions and assume patient care.
[2019-07-05 08:00] VITALS: BP 136/75
[2019-07-05] MEDS: MEROPENEM 1GM/NS 50ML IVPB 50 ML IV SCH (08:12)
[2019-07-05] MEDS: metoprolol tartrate 50mg tablet PO SCH (08:14)
[2019-07-05] MEDS: allopurinol 300 MG tablet PO SCH (08:14)
[2019-07-05] MEDS: losartan 50mg tablet PO SCH (08:14)
[2019-07-05] MEDS: omega-3 acid ethyl esters 1GM capsule PO SCH (08:15)
[2019-07-05] MEDS: heparin, porcine 5000 units/ml vial SQ SCH (08:15)
[2019-07-05] MEDS: folic acid 1mg tablet PO SCH (08:15)
[2019-07-05] MEDS: amLODIPine 5mg tablet PO SCH (08:17)
[2019-07-05] MEDS: duloxetine 30mg CAPSULE.DR PO SCH (08:17)
[2019-07-05 11:00] VITALS: BP 133/76
[2019-07-05] MEDS ORDERED: NAPR-56 PO (11:15)
[2019-07-05] MEDS ORDERED: ERTA1VIA4 IV (11:15)
[2019-07-05] MEDS ORDERED: naproxen 500mg tablet PO SCH (12:25)
--- NOTE | 2019-07-05 13:00 | NUR ---
MIDLINE PLACEMENT: EXPIRES: 12/30/2020 REF: [id number] LOT: [id number]
--- NOTE | 2019-07-05 17:46 | NUR ---
PATIENT STABLE AND APPROPRIATE FOR DISCHARGE, EDUCATION GIVEN, IV TAKEN OUT, ALL BELONGINGS SENT WITH PATIENT, PATIENT TAKEN TO LOBBY BY WHEELCHAIR TO AN AWAITING CAR WHERE FAMILY WILL TAKE PATIENT HOME
[2019-07-13] MEDS ORDERED: ADALIMUMAB 40 MG/0.8 ML SQ SCH (08:00)
== END 2019-07-05 14:39 | disposition home health service (06) | DRG 690 ==
LOC: ER 10:33 → ED HOLD 12:55 → SUR 3N 18:49
PROVIDERS: ADMIT Family Medicine; ATTEND Family Medicine
DX: N39.0 Urinary tract infection, site not specified (principal); L40.50 Arthropathic psoriasis, unspecified; E78.00 Pure hypercholesterolemia, unspecified; E11.9 Type 2 diabetes mellitus without complications; E78.5 Hyperlipidemia, unspecified; B96.1 Klebsiella pneumoniae [K. pneumoniae] as the cause of diseases classified elsewhere; I10 Essential (primary) hypertension; M06.9 Rheumatoid arthritis, unspecified; Z79.899 Other long term (current) drug therapy; Z80.3 Family history of malignant neoplasm of breast; Z82.49 Family history of ischemic heart disease and other diseases of the circulatory system; Z90.710 Acquired absence of both cervix and uterus; Z83.3 Family history of diabetes mellitus; Z90.49 Acquired absence of other specified parts of digestive tract
CPT/HCPCS: 36415; 76937; 80048; 80053; 81001; 82948; 83036; 85025; 87077; 87081; 87088; 87186; 99285; G0378; J0692; J1644; J1815; J2185; J2405; J7030; J7060

== ENCOUNTER 2019-07-11 09:52 | Emergency (ER) | payer MEDICARE, OTHER ==
[~2019-07-11] VITALS: Ht 162.6 cm; Wt 98.6 kg
[~2019-07-11 09:52] MED LIST changes: -CIPR-230 PO; +ERTA1VIA4 IV; -MELO-102 PO; +NAPR-56 PO; +NOVLG SUBCUT; +PRE1T PO
[2019-07-11] MEDS ORDERED: normal saline 1000ML IV soln IV ONE (10:40)
[2019-07-11] MEDS ORDERED: morphine 4 MG/ML inj SYRINge IV ONE (10:40)
[2019-07-11] MEDS ORDERED: ondansetron/PF 4mg/2ml inj IV ONE (10:40)
[2019-07-11 10:54] LABS: BASOPHILS # (AUTO) 0.1 X10'3 (0-0.2); BASOPHILS % (AUTO) 0.7 % (0-1); EOSINOPHILS # (AUTO) 0.1 X10'3 (0-0.9); EOSINOPHILS % (AUTO) 0.8 % (0-6); HEMATOCRIT 36.8 % (35.0-45.0); HEMOGLOBIN 12.1 g/dl (12.0-16.0); LYMPHOCYTES # (AUTO) 2.2 X10'3 (1.1-4.8); LYMPHOCYTES % (AUTO) 21.1 % (21-51); MEAN CORPUSCULAR HEMOGLOBIN 31.4 PG (27.0-31.0); MEAN CORPUSCULAR HGB CONC 32.9 g/dL (33.0-36.5); MEAN CORPUSCULAR VOLUME 95.3 FL (78-98); MEAN PLATELET VOLUME 7.2 FL (7.4-10.4); MONOCYTES # (AUTO) 1.1 X10'3 (0-0.9); MONOCYTES % (AUTO) 10.1 % (2-12); NEUTROPHILS # (AUTO) 7.1 X10'3 (1.8-7.7); NEUTROPHILS % (AUTO) 67.3 % (42-75); PLATELET COUNT 440 X10'3 (140-440); RED BLOOD COUNT 3.86 X10'6 (4.20-5.60); RED CELL DISTRIBUTION WIDTH 14.5 % (11.5-14.5); WHITE BLOOD COUNT 10.5 X10'3 (4.5-11.0)
[2019-07-11 11:02] LABS: COLOR,URINE YELLOW (Yellow); GLUCOSE, URINE NEGATIVE (Neg); KETONES,URINE NEGATIVE (Neg); LEUKOCYTE ESTERASE ,URINE NEGATIVE (Neg); NITRITES, URINE NEGATIVE (Neg); OCCULT BLOOD,URINE SMALL (Neg); PH,URINE 5.5 (4.8-8.0); PROTEIN,URINE 30 mg/dl (Neg); UROBILINOGEN,URINE 0.2 E.U/dL (0.2-1.0)
[2019-07-11 11:04] LABS: CLARITY,URINE SLIGHTLY CLOUDY (Clear); UA COLLECTION TYPE STRAIGHT CATH
[2019-07-11 11:08] LABS: PARTIAL THROMBOPLASTIN TIME 25 SECONDS (22-32)
[2019-07-11 11:10] LABS: AMORPHOUS URATES 1+; BACTERIA,URINE NONE SEEN /HPF (Neg); MUCUS STRANDS NONE SEEN /LPF (Neg); SQUAMOUS EPITHELIAL CELL,UR FEW /LPF (FEW); WBC,URINE 0-4 /HPF (0-4)
[2019-07-11 11:27] LABS: ALANINE AMINOTRANSFERASE 23 U/L (12-78); ALBUMIN 2.7 G/DL (3.4-5.0); ALBUMIN/GLOBULIN RATIO 0.7 (1.1-1.5); ALKALINE PHOSPHATASE 124 IU/L (46-116); ANION GAP 8 (8-16); ASPARTATE AMINO TRANSFERASE 16 U/L (10-37); BILIRUBIN,TOTAL 0.5 MG/DL (0.1-1.0); BLOOD UREA NITROGEN 15 MG/DL (7-18); BUN/CREATININE RATIO 19.2 (6.6-38.0); CALCIUM 9.6 MG/DL (8.5-10.1); CHLORIDE 100 MMOL/L (99-107); CREATININE 0.78 MG/DL (0.40-0.90); GLUCOSE 226 MG/DL (70-104); POTASSIUM 3.7 MMOL/L (3.5-5.1); SODIUM 133 MMOL/L (135-145); TOTAL PROTEIN 6.7 G/DL (6.4-8.2); eGFR 72 ML/MIN
[2019-07-11] MEDS ORDERED: meropenem inj 1 GM in normal saline 100ml IV soln 100 ML IV ONE ×2 (12:30→12:35)
[2019-07-11] MEDS ORDERED: DEXTROSE 5% IV ONE (12:35)
[2019-07-11] MEDS ORDERED: WATER IV ONE (12:35)
[2019-07-11] MEDS ORDERED: MEROPENEM IV ONE (12:35)
--- NOTE | 2019-07-11 12:43 | NUR ---
Asked to consult on this pt who seems to have failed home discharge. Pt was admitted here 07/02/19 till 07/05/19 w/ IV abx infusion. Pt is failing at home, progressive weakness is such that gustavo macias is unable to even get out of bed on her own today. She is now requesting rehab placement. Met w/ pt and her family at the bedside. They are agreeable to short term rehab at [facility] especially in light of them living in [place]. Placed call to Tamar at [facility], after review by them they have accepted the pt for short term rehab. Paperwork signed/faxed, awaiting cone picker time.
--- NOTE | 2019-07-11 13:15 | NUR ---
REPORT GIVEN TO BERNADINE AT [facility].
[2019-07-11 13:43] VITALS: BP 132/81
== END 2019-07-11 13:46 ==
LOC: ER 09:52
DX: A41.9 Sepsis, unspecified organism (principal); M06.9 Rheumatoid arthritis, unspecified; R62.7 Adult failure to thrive; G89.29 Other chronic pain; E78.00 Pure hypercholesterolemia, unspecified; E11.9 Type 2 diabetes mellitus without complications; I10 Essential (primary) hypertension; Z79.4 Long term (current) use of insulin; Z79.899 Other long term (current) drug therapy; Z68.37 Body mass index [BMI] 37.0-37.9, adult
CPT/HCPCS: 36415; 80053; 81001; 83605; 84145; 85025; 85610; 85730; 87040; 93005; 96365; 96375; 99284; J2185; J2270; J2405; J7030; J7060

== ENCOUNTER 2021-03-19 09:55 | Inpatient (IN) | payer MEDICARE, MEDICAID ==
[~2021-03-19] VITALS: Ht 162.6 cm; Wt 100.0 kg
[~2021-03-19 09:55] MED LIST changes: -OMEG-107 PO; +OMEG-220 PO
[2021-03-19 11:16] LABS: BASOPHILS # (AUTO) 0.1 X10'3 (0-0.2); BASOPHILS % (AUTO) 0.4 % (0-1); EOSINOPHILS # (AUTO) 0.1 X10'3 (0-0.9); EOSINOPHILS % (AUTO) 0.8 % (0-6); HEMATOCRIT 34.3 % (35.0-45.0); HEMOGLOBIN 10.9 g/dl (12.0-16.0); LYMPHOCYTES % (AUTO) 5.7 % (21-51); MEAN CORPUSCULAR HEMOGLOBIN 32.5 PG (27.0-31.0); MEAN CORPUSCULAR HGB CONC 31.9 g/dL (33.0-36.5); MEAN CORPUSCULAR VOLUME 101.7 FL (78-98); MEAN PLATELET VOLUME 7.9 FL (7.4-10.4); MONOCYTES # (AUTO) 0.7 X10'3 (0-0.9); MONOCYTES % (AUTO) 3.7 % (2-12); NEUTROPHILS # (AUTO) 16.4 X10'3 (1.8-7.7); NEUTROPHILS % (AUTO) 89.4 % (42-75); PLATELET COUNT 336 X10'3 (140-440); RED BLOOD COUNT 3.37 X10'6 (4.20-5.60); WHITE BLOOD COUNT 18.4 X10'3 (4.5-11.0)
[2021-03-19 12:06] LABS: ALANINE AMINOTRANSFERASE 35 U/L (12-78); ALBUMIN 2.8 G/DL (3.4-5.0); ALBUMIN/GLOBULIN RATIO 0.8 (1.1-1.5); ALKALINE PHOSPHATASE 122 IU/L (46-116); ANION GAP 12 (8-16); ASPARTATE AMINO TRANSFERASE 40 U/L (10-37); BILIRUBIN,TOTAL 0.5 MG/DL (0.1-1.0); BLOOD UREA NITROGEN 31 MG/DL (7-18); BUN/CREATININE RATIO 21.5 (6.6-38.0); CHLORIDE 104 MMOL/L (99-107); CREATININE 1.44 MG/DL (0.40-0.90); GLUCOSE 107 MG/DL (70-104); POTASSIUM 5.4 MMOL/L (3.5-5.1); SODIUM 136 MMOL/L (135-145); TOTAL CARBON DIOXIDE 20.4 MMOL/L (24-32); TOTAL PROTEIN 6.2 G/DL (6.4-8.2); eGFR 35 ML/MIN
[2021-03-19 13:25] LABS: CLARITY,URINE CLOUDY (Clear); COLOR,URINE YELLOW (Yellow); GLUCOSE, URINE NEGATIVE (Neg); KETONES,URINE TRACE mg/dl (Neg); LEUKOCYTE ESTERASE ,URINE TRACE (Neg); NITRITES, URINE NEGATIVE (Neg); OCCULT BLOOD,URINE NEGATIVE (Neg); PROTEIN,URINE 30 mg/dl (Neg); UROBILINOGEN,URINE 0.2 E.U/dL (0.2-1.0)
[2021-03-19 13:47] LABS: UA COLLECTION TYPE OTHER
[2021-03-19 13:57] LABS: BACTERIA,URINE FEW /HPF (Neg); RBC,URINE NONE SEEN /HPF (0-2)
[2021-03-19 13:58] LABS: CELLULAR CAST 0-4 /LPF (NEGATIVE); MUCUS STRANDS NONE SEEN /LPF (Neg); SQUAMOUS EPITHELIAL CELL,UR MANY /LPF (FEW)
[2021-03-19] MEDS ORDERED: CefTRIAXone/D5W-Rocephin 1gm 50 ML IV ONE (14:05)
[2021-03-19] MEDS ORDERED: GABA300C PO (15:21)
[2021-03-19] MEDS ORDERED: AMLO5TAB16 PO (15:21)
[2021-03-19] MEDS ORDERED: ALLO300T8 PO (15:21)
[2021-03-19] MEDS ORDERED: ICOS1CAP PO (15:21)
[2021-03-19] MEDS ORDERED: NAPR-996 PO (15:21)
[2021-03-19] MEDS ORDERED: FURO20TA4 PO (15:21)
[2021-03-19] MEDS ORDERED: glucagon, human recombinant 1mg kit SUBCUT PRN (16:40)
[2021-03-19] MEDS ORDERED: ondansetron/PF 4mg/2ml inj IV PRN (16:40)
[2021-03-19] MEDS ORDERED: dextrose 50%-water 50ml dispensing syringe IV PRN ×2 (16:40)
[2021-03-19] MEDS ORDERED: MESSAGE TO PHARMACY PO ONE (16:40)
[2021-03-19] MEDS: normal saline 1000ml 1,000 ML IV SCH (16:40)
[2021-03-19] MEDS ORDERED: acetaminophen 325mg tablet PO PRN (16:40)
[2021-03-19] MEDS ORDERED: bisacodyl 10mg suppository rectal RC PRN (16:40)
[2021-03-19] MEDS ORDERED: VANCOMYCIN 1GM/200ML IVPB 200 ML IV ONE (16:40)
[2021-03-19] MEDS ORDERED: dextrose ORAL solution 15 GM/59 ML bottle PO PRN ×2 (16:40)
[2021-03-19] MEDS ORDERED: vancomycin 1,750 MG in NS 350ml IV soln IV ONE (17:30)
[2021-03-19] MEDS ORDERED: PRED5TAB PO (18:52)
[2021-03-19] MEDS: docusate sod 100mg capsule PO SCH (20:00)
[2021-03-19] MEDS: OMEGA-3/DHA/EPA/FISH OIL 1 EACH CAPSULE.DR PO SCH (20:00)
[2021-03-19] MEDS ORDERED: predniSONE 5mg tablet PO ONE (20:10)
[2021-03-19] MEDS: metoprolol tartrate 50mg tablet PO SCH (20:23)
[2021-03-19] MEDS: gabapentin 300mg capsule PO SCH (20:23)
[2021-03-19] MEDS: insulin glargine (Lantus) pen - multi-dose SQ SCH (20:27)
[2021-03-20] MEDS: normal saline 1000ml 1,000 ML IV SCH ×3 (02:40→23:38)
[2021-03-20 06:32] LABS: BASOPHILS % (AUTO) 0.3 % (0-1); EOSINOPHILS # (AUTO) 0.1 X10'3 (0-0.9); EOSINOPHILS % (AUTO) 0.5 % (0-6); HEMATOCRIT 31.9 % (35.0-45.0); HEMOGLOBIN 10.4 g/dl (12.0-16.0); LYMPHOCYTES # (AUTO) 1.9 X10'3 (1.1-4.8); LYMPHOCYTES % (AUTO) 10.4 % (21-51); MEAN CORPUSCULAR HEMOGLOBIN 33.1 PG (27.0-31.0); MEAN CORPUSCULAR HGB CONC 32.5 g/dL (33.0-36.5); MEAN CORPUSCULAR VOLUME 101.8 FL (78-98); MEAN PLATELET VOLUME 7.8 FL (7.4-10.4); MONOCYTES # (AUTO) 1.2 X10'3 (0-0.9); MONOCYTES % (AUTO) 6.4 % (2-12); NEUTROPHILS # (AUTO) 15.4 X10'3 (1.8-7.7); NEUTROPHILS % (AUTO) 82.4 % (42-75); PLATELET COUNT 301 X10'3 (140-440); RED BLOOD COUNT 3.14 X10'6 (4.20-5.60); RED CELL DISTRIBUTION WIDTH 17.9 % (11.5-14.5); WHITE BLOOD COUNT 18.7 X10'3 (4.5-11.0)
[2021-03-20 06:36] LABS: ALANINE AMINOTRANSFERASE 49 U/L (12-78); ALBUMIN 2.5 G/DL (3.4-5.0); ALBUMIN/GLOBULIN RATIO 0.7 (1.1-1.5); ALKALINE PHOSPHATASE 131 IU/L (46-116); ANION GAP 9 (8-16); ASPARTATE AMINO TRANSFERASE 46 U/L (10-37); BILIRUBIN,TOTAL 0.6 MG/DL (0.1-1.0); BLOOD UREA NITROGEN 27 MG/DL (7-18); BUN/CREATININE RATIO 24.8 (6.6-38.0); CALCIUM 9.6 MG/DL (8.5-10.1); CHLORIDE 109 MMOL/L (99-107); CREATININE 1.09 MG/DL (0.40-0.90); GLUCOSE 94 MG/DL (70-104); POTASSIUM 5.3 MMOL/L (3.5-5.1); SODIUM 139 MMOL/L (135-145); TOTAL PROTEIN 6.1 G/DL (6.4-8.2); eGFR 49 ML/MIN
--- NOTE | 2021-03-20 08:35 | NUR ---
Patients son at bedside reports that hands from RA are more swollen than usual. In the past patients dr has increased prednisone which is effective.
[2021-03-20] MEDS: docusate sod 100mg capsule PO SCH ×2 (08:40→19:35)
[2021-03-20] MEDS: OMEGA-3/DHA/EPA/FISH OIL 1 EACH CAPSULE.DR PO SCH ×2 (08:41→19:35)
[2021-03-20] MEDS: folic acid 1mg tablet PO SCH (08:42)
[2021-03-20] MEDS: gabapentin 300mg capsule PO SCH ×2 (08:44→19:35)
[2021-03-20] MEDS: metoprolol tartrate 50mg tablet PO SCH ×2 (08:44→19:37)
[2021-03-20] MEDS: allopurinol 300 MG tablet PO SCH (08:45)
--- NOTE | 2021-03-20 09:01 | NUR ---
izaiah Benson, hospitalist, to add prednisone as daily PO and request prn pain med. Waiting for call back.
[2021-03-20] MEDS: CefTRIAXone/D5W-Rocephin 1gm 50 ML IV SCH (09:21)
[2021-03-20 10:00] VITALS: BP 105/56
[2021-03-20] MEDS: prednisone 10mg tablet PO SCH (13:18)
--- NOTE | 2021-03-20 13:26 | NUR ---
PT BG 109 BEFORE LUNCH. Addendum: 03/20/21 at 1327 by Samantha Lizarraga RN RN Amended: Links added.
--- NOTE | 2021-03-20 14:06 | NUR ---
Received report from CHRIS Singh. Awaiting patient arrival to room 352.
--- NOTE | 2021-03-20 14:15 | NUR ---
Received patient to room 352 via bed accompanied by x2 staff. Patient alert and oriented with no complaints. IV in right arm infiltrated. Straight cath for urine sample completed with Samantha PEREZ at bedside. New IV 22g LFA placed. IVF infusing per MD order. Oriented patient to room and call light. Bed low and locked, belgongs bag placed in closet.
[2021-03-20 14:52] VITALS: BP 113/57
[2021-03-20 15:28] LABS: CLARITY,URINE CLEAR (Clear); COLOR,URINE YELLOW (Yellow); GLUCOSE, URINE NEGATIVE (Neg); KETONES,URINE NEGATIVE (Neg); LEUKOCYTE ESTERASE ,URINE NEGATIVE (Neg); NITRITES, URINE NEGATIVE (Neg); OCCULT BLOOD,URINE NEGATIVE (Neg); PH,URINE 5.5 (4.8-8.0); PROTEIN,URINE NEGATIVE (Neg); UROBILINOGEN,URINE 0.2 E.U/dL (0.2-1.0)
[2021-03-20 15:52] LABS: UA COLLECTION TYPE STRAIGHT CATH
[2021-03-20 18:00] VITALS: BP 128/50
--- NOTE | 2021-03-20 18:14 | NUR ---
Patient in room SIMA 352. I have received report from CHRIS Sheriff and had the opportunity to ask questions and assume patient care.
--- NOTE | 2021-03-20 18:23 | NUR ---
Problems reprioritized. Patient report given, questions answered & plan of care reviewed with CHRIS Fernandez.
[2021-03-20] MEDS: vancomycin/NS 1 GM ADD-VANTAGE 250 ML IV SCH (19:35)
[2021-03-20] MEDS: lactobacillus rhamnosus 10,000 MMU CELLS/CAPSULE PO SCH (19:35)
[2021-03-20] MEDS: insulin glargine (Lantus) pen - multi-dose SQ SCH (22:40)
[2021-03-20] MEDS ORDERED: HYDROcodone/acetaminophen 5mg/325mg tablet PO PRN (23:25)
[2021-03-20] MEDS ORDERED: morphine 2 MG/ML inj. syringe IV PRN (23:25)
[2021-03-21] VITALS: BP 154/86
--- NOTE | 2021-03-21 06:21 | NUR ---
Problems reprioritized. Patient report given, questions answered & plan of care reviewed with CHRIS Lee.
[2021-03-21 08:00] VITALS: BP 128/60
[2021-03-21] MEDS: docusate sod 100mg capsule PO SCH ×2 (08:00→20:00)
[2021-03-21] MEDS: normal saline 1000ml 1,000 ML IV SCH ×2 (08:40→15:00)
[2021-03-21] MEDS: allopurinol 300 MG tablet PO SCH (08:43)
[2021-03-21] MEDS: CefTRIAXone/D5W-Rocephin 1gm 50 ML IV SCH (08:43)
[2021-03-21] MEDS: prednisone 10mg tablet PO SCH (08:44)
[2021-03-21] MEDS: gabapentin 300mg capsule PO SCH ×2 (08:44→20:15)
[2021-03-21] MEDS: lactobacillus rhamnosus 10,000 MMU CELLS/CAPSULE PO SCH ×2 (08:44→20:12)
[2021-03-21] MEDS: folic acid 1mg tablet PO SCH (08:44)
[2021-03-21] MEDS: OMEGA-3/DHA/EPA/FISH OIL 1 EACH CAPSULE.DR PO SCH ×2 (08:51→20:12)
[2021-03-21] MEDS: metoprolol tartrate 50mg tablet PO SCH ×2 (08:51→20:15)
[2021-03-21] MEDS: insulin Lispro (HumaLOG) vial - multi-dose SQ SCH ×2 (08:59→14:21)
--- NOTE | 2021-03-21 09:48 | NUR ---
Noted pt with T2DM, well controlled with A1c 7.0%. DM education not warranted at this time. Will continue to follow. Addendum: 03/21/21 at [address] Amended: Links added.
[2021-03-21 10:16] LABS: BASOPHILS # (AUTO) 0.1 X10'3 (0-0.2); BASOPHILS % (AUTO) 0.4 % (0-1); EOSINOPHILS # (AUTO) 0.2 X10'3 (0-0.9); EOSINOPHILS % (AUTO) 1.4 % (0-6); HEMATOCRIT 31.5 % (35.0-45.0); HEMOGLOBIN 10.1 g/dl (12.0-16.0); LYMPHOCYTES # (AUTO) 2.1 X10'3 (1.1-4.8); LYMPHOCYTES % (AUTO) 13.2 % (21-51); MEAN CORPUSCULAR HEMOGLOBIN 32.7 PG (27.0-31.0); MEAN CORPUSCULAR VOLUME 102.3 FL (78-98); MEAN PLATELET VOLUME 8.2 FL (7.4-10.4); MONOCYTES # (AUTO) 1.1 X10'3 (0-0.9); MONOCYTES % (AUTO) 7.2 % (2-12); NEUTROPHILS # (AUTO) 12.2 X10'3 (1.8-7.7); NEUTROPHILS % (AUTO) 77.8 % (42-75); PLATELET COUNT 308 X10'3 (140-440); RED BLOOD COUNT 3.08 X10'6 (4.20-5.60); RED CELL DISTRIBUTION WIDTH 18.3 % (11.5-14.5); WHITE BLOOD COUNT 15.7 X10'3 (4.5-11.0)
[2021-03-21 10:40] LABS: ALBUMIN 2.2 G/DL (3.4-5.0); ANION GAP 5 (8-16); BLOOD UREA NITROGEN 22 MG/DL (7-18); BUN/CREATININE RATIO 24.4 (6.6-38.0); CALCIUM 9.1 MG/DL (8.5-10.1); CHLORIDE 106 MMOL/L (99-107); GLUCOSE 182 MG/DL (70-104); POTASSIUM 4.5 MMOL/L (3.5-5.1); SODIUM 134 MMOL/L (135-145); TOTAL CARBON DIOXIDE 23.5 MMOL/L (24-32); eGFR 61 ML/MIN
[2021-03-21 11:38] VITALS: BP 146/70
--- NOTE | 2021-03-21 18:40 | NUR ---
REPORT GIVEN TO GISELE PEREZ. ALL QUESTIONS ANSWERED. PT EATING DINNER WITH DAUGHTER AT BEDSIDE
--- NOTE | 2021-03-21 18:43 | NUR ---
Patient in room SIMA 352. I have received report from CHRIS Lee and had the opportunity to ask questions and assume patient care.
[2021-03-21 19:00] VITALS: BP 140/71
[2021-03-21] MEDS: vancomycin/NS 1 GM ADD-VANTAGE 250 ML IV SCH (22:20)
[2021-03-21] MEDS: insulin glargine (Lantus) pen - multi-dose SQ SCH (22:25)
[2021-03-22] VITALS: BP 141/72
[2021-03-22] MEDS: normal saline 1000ml 1,000 ML IV SCH ×3 (01:17→11:46)
--- NOTE | 2021-03-22 06:42 | NUR ---
Patient in room SIMA 352. I have received report from CHRIS Davis and had the opportunity to ask questions and assume patient care.
--- NOTE | 2021-03-22 06:43 | NUR ---
Problems reprioritized. Patient report given, questions answered & plan of care reviewed with CHRIS Sheriff.
[2021-03-22 07:00] VITALS: BP 145/80
[2021-03-22] MEDS: metoprolol tartrate 50mg tablet PO SCH ×2 (07:28→20:07)
[2021-03-22] MEDS: CefTRIAXone/D5W-Rocephin 1gm 50 ML IV SCH (07:28)
[2021-03-22] MEDS: folic acid 1mg tablet PO SCH (07:28)
[2021-03-22] MEDS: OMEGA-3/DHA/EPA/FISH OIL 1 EACH CAPSULE.DR PO SCH ×2 (07:28→20:07)
[2021-03-22] MEDS: gabapentin 300mg capsule PO SCH ×2 (07:29→20:07)
[2021-03-22] MEDS: docusate sod 100mg capsule PO SCH ×2 (07:29→19:47)
[2021-03-22] MEDS: lactobacillus rhamnosus 10,000 MMU CELLS/CAPSULE PO SCH ×2 (07:29→20:07)
[2021-03-22] MEDS: prednisone 10mg tablet PO SCH (07:31)
[2021-03-22] MEDS: allopurinol 300 MG tablet PO SCH (07:31)
[2021-03-22 11:18] LABS: BASOPHILS # (AUTO) 0.1 X10'3 (0-0.2); BASOPHILS % (AUTO) 0.5 % (0-1); EOSINOPHILS # (AUTO) 0.2 X10'3 (0-0.9); EOSINOPHILS % (AUTO) 1.4 % (0-6); HEMATOCRIT 33.1 % (35.0-45.0); HEMOGLOBIN 10.5 g/dl (12.0-16.0); LYMPHOCYTES # (AUTO) 1.2 X10'3 (1.1-4.8); LYMPHOCYTES % (AUTO) 8.8 % (21-51); MEAN CORPUSCULAR HEMOGLOBIN 32.3 PG (27.0-31.0); MEAN CORPUSCULAR HGB CONC 31.7 g/dL (33.0-36.5); MEAN CORPUSCULAR VOLUME 102.2 FL (78-98); MEAN PLATELET VOLUME 7.6 FL (7.4-10.4); MONOCYTES # (AUTO) 0.7 X10'3 (0-0.9); MONOCYTES % (AUTO) 5.1 % (2-12); NEUTROPHILS # (AUTO) 11.5 X10'3 (1.8-7.7); NEUTROPHILS % (AUTO) 84.2 % (42-75); PLATELET COUNT 387 X10'3 (140-440); RED BLOOD COUNT 3.24 X10'6 (4.20-5.60); RED CELL DISTRIBUTION WIDTH 17.4 % (11.5-14.5); WHITE BLOOD COUNT 13.7 X10'3 (4.5-11.0)
[2021-03-22 11:54] LABS: ALANINE AMINOTRANSFERASE 29 U/L (12-78); ALBUMIN 2.2 G/DL (3.4-5.0); ALBUMIN/GLOBULIN RATIO 0.6 (1.1-1.5); ALKALINE PHOSPHATASE 124 IU/L (46-116); ANION GAP 10 (8-16); ASPARTATE AMINO TRANSFERASE 14 U/L (10-37); BILIRUBIN,TOTAL 0.3 MG/DL (0.1-1.0); BLOOD UREA NITROGEN 25 MG/DL (7-18); BUN/CREATININE RATIO 28.4 (6.6-38.0); CALCIUM 9.2 MG/DL (8.5-10.1); CHLORIDE 104 MMOL/L (99-107); CREATININE 0.88 MG/DL (0.40-0.90); GLUCOSE 208 MG/DL (70-104); POTASSIUM 4.6 MMOL/L (3.5-5.1); SODIUM 136 MMOL/L (135-145); TOTAL CARBON DIOXIDE 22.4 MMOL/L (24-32); TOTAL PROTEIN 6.1 G/DL (6.4-8.2); eGFR 62 ML/MIN
[2021-03-22 12:18] VITALS: BP 148/85
[2021-03-22] MEDS: insulin Lispro (HumaLOG) vial - multi-dose SQ SCH ×2 (13:52→20:04)
[2021-03-22] MEDS ORDERED: VANCOMYCIN LEVEL IV ONE (16:30)
[2021-03-22 18:00] VITALS: BP 149/66
[2021-03-22] MEDS ORDERED: vancomycin/NS 1 GM ADD-VANTAGE 250 ML IV SCH (18:00)
--- NOTE | 2021-03-22 18:42 | NUR ---
Problems reprioritized. Patient report given, questions answered & plan of care reviewed with CHRIS Cummins. Taco serrano not avaiable to be hung. Pharmacy messaged to send. CHRIS Cummins aware.
[2021-03-22] MEDS: insulin glargine (Lantus) pen - multi-dose SQ SCH (21:44)
[2021-03-23] VITALS: BP 155/71
[2021-03-23] MEDS: normal saline 1000ml 1,000 ML IV SCH ×2 (00:40→07:00)
--- NOTE | 2021-03-23 04:24 | NUR ---
Patient in room SIMA 352. I have received report from Jaziel PEREZ and had the opportunity to ask questions and assume patient care.
--- NOTE | 2021-03-23 06:40 | NUR ---
Patient in room SIMA 352. I have received report from CHRIS Cummins and had the opportunity to ask questions and assume patient care.
[2021-03-23 07:00] VITALS: BP 150/85
[2021-03-23] MEDS: allopurinol 300 MG tablet PO SCH (08:03)
[2021-03-23] MEDS: OMEGA-3/DHA/EPA/FISH OIL 1 EACH CAPSULE.DR PO SCH (08:03)
[2021-03-23] MEDS: CefTRIAXone/D5W-Rocephin 1gm 50 ML IV SCH (08:03)
[2021-03-23] MEDS: prednisone 10mg tablet PO SCH (08:03)
[2021-03-23] MEDS: folic acid 1mg tablet PO SCH (08:03)
[2021-03-23] MEDS: gabapentin 300mg capsule PO SCH (08:04)
[2021-03-23] MEDS: metoprolol tartrate 50mg tablet PO SCH (08:04)
[2021-03-23] MEDS: lactobacillus rhamnosus 10,000 MMU CELLS/CAPSULE PO SCH (08:04)
[2021-03-23] MEDS: docusate sod 100mg capsule PO SCH (08:04)
[2021-03-23] MEDS: insulin Lispro (HumaLOG) vial - multi-dose SQ SCH ×2 (08:09→12:59)
[2021-03-23 08:10] LABS: BASOPHILS # (AUTO) 0.1 X10'3 (0-0.2); BASOPHILS % (AUTO) 1.4 % (0-1); EOSINOPHILS # (AUTO) 0.4 X10'3 (0-0.9); EOSINOPHILS % (AUTO) 5.1 % (0-6); HEMATOCRIT 33.9 % (35.0-45.0); HEMOGLOBIN 11.1 g/dl (12.0-16.0); LYMPHOCYTES # (AUTO) 2.8 X10'3 (1.1-4.8); LYMPHOCYTES % (AUTO) 33.2 % (21-51); MEAN CORPUSCULAR HEMOGLOBIN 32.7 PG (27.0-31.0); MEAN CORPUSCULAR HGB CONC 32.8 g/dL (33.0-36.5); MEAN CORPUSCULAR VOLUME 99.7 FL (78-98); MEAN PLATELET VOLUME 6.9 FL (7.4-10.4); MONOCYTES # (AUTO) 0.6 X10'3 (0-0.9); MONOCYTES % (AUTO) 7.6 % (2-12); NEUTROPHILS # (AUTO) 4.5 X10'3 (1.8-7.7); NEUTROPHILS % (AUTO) 52.7 % (42-75); PLATELET COUNT 431 X10'3 (140-440); RED CELL DISTRIBUTION WIDTH 17.7 % (11.5-14.5); WHITE BLOOD COUNT 8.5 X10'3 (4.5-11.0)
[2021-03-23 08:25] LABS: ALANINE AMINOTRANSFERASE 23 U/L (12-78); ALBUMIN 2.4 G/DL (3.4-5.0); ALBUMIN/GLOBULIN RATIO 0.6 (1.1-1.5); ALKALINE PHOSPHATASE 119 IU/L (46-116); ANION GAP 8 (8-16); ASPARTATE AMINO TRANSFERASE 12 U/L (10-37); BILIRUBIN,TOTAL 0.3 MG/DL (0.1-1.0); BLOOD UREA NITROGEN 27 MG/DL (7-18); BUN/CREATININE RATIO 30.3 (6.6-38.0); CALCIUM 9.8 MG/DL (8.5-10.1); CHLORIDE 104 MMOL/L (99-107); CREATININE 0.89 MG/DL (0.40-0.90); GLUCOSE 126 MG/DL (70-104); POTASSIUM 4.2 MMOL/L (3.5-5.1); SODIUM 136 MMOL/L (135-145); TOTAL CARBON DIOXIDE 23.7 MMOL/L (24-32); TOTAL PROTEIN 6.3 G/DL (6.4-8.2); eGFR 61 ML/MIN
[2021-03-23] MEDS ORDERED: vancomycin/NS 1 GM ADD-VANTAGE 250 ML IV SCH (09:00)
[2021-03-23 11:00] VITALS: BP 138/76
[2021-03-23] MEDS ORDERED: CIPR-259 PO (12:09)
--- NOTE | 2021-03-23 15:00 | NUR ---
DC inst provided to pt. IV DC'd, tip intact. All belongings sent w/pt. WC to vehicle.
[2021-03-23] MEDS ORDERED: nystatin 15 GM powder TP SCH (20:00)
== END 2021-03-23 15:00 | disposition home or self-care (01) | DRG 872 ==
LOC: ER 09:56 → ED HOLD 16:43 → SUR 3N 03-20 14:15
PROVIDERS: ADMIT Family Medicine; ATTEND Internal Medicine
DX: A41.9 Sepsis, unspecified organism (principal); D84.9 Immunodeficiency, unspecified; N39.0 Urinary tract infection, site not specified; J98.11 Atelectasis; N17.9 Acute kidney failure, unspecified; M06.9 Rheumatoid arthritis, unspecified; E87.5 Hyperkalemia; N18.9 Chronic kidney disease, unspecified; E11.22 Type 2 diabetes mellitus with diabetic chronic kidney disease; E11.621 Type 2 diabetes mellitus with foot ulcer; E78.00 Pure hypercholesterolemia, unspecified; E78.5 Hyperlipidemia, unspecified; I12.9 Hypertensive chronic kidney disease with stage 1 through stage 4 chronic kidney disease, or unspecified chronic kidney disease; L40.50 Arthropathic psoriasis, unspecified; L97.519 Non-pressure chronic ulcer of other part of right foot with unspecified severity; E66.01 Morbid (severe) obesity due to excess calories; L97.529 Non-pressure chronic ulcer of other part of left foot with unspecified severity; R32 Unspecified urinary incontinence; I95.9 Hypotension, unspecified; T38.0X5A Adverse effect of glucocorticoids and synthetic analogues, initial encounter; T44.5X5A Adverse effect of predominantly beta-adrenoreceptor agonists, initial encounter; T50.2X5A Adverse effect of carbonic-anhydrase inhibitors, benzothiadiazides and other diuretics, initial encounter; Z80.3 Family history of malignant neoplasm of breast; Z82.49 Family history of ischemic heart disease and other diseases of the circulatory system; Z83.3 Family history of diabetes mellitus; Z90.710 Acquired absence of both cervix and uterus; Z68.37 Body mass index [BMI] 37.0-37.9, adult; Z79.899 Other long term (current) drug therapy; Z79.4 Long term (current) use of insulin; Z90.49 Acquired absence of other specified parts of digestive tract; Y92.89 Other specified places as the place of occurrence of the external cause
CPT/HCPCS: 36415; 71045; 73630; 73720; 74176; 80048; 80053; 80202; 81001; 81003; 82948; 83036; 83605; 84145; 85025; 87040; 93005; 96365; 97110; 97161; 97530; 99285; G0378; J0696; J1815; J2270; J2405; J3370; J7030; J7040; J7512; J8610

== ENCOUNTER 2024-02-22 11:15 | Emergency (ER) | payer MEDICARE, MEDICAID ==
[~2024-02-22] VITALS: Ht 162.6 cm; Wt 90.5 kg
[~2024-02-22 11:15] MED LIST changes: -ADAL40PE SUBCUT; -ALLO300T2 PO; +ALLO300T8 PO; -AMLO10TA13 PO; +AMLO5TAB16 PO; -ERTA1VIA4 IV; +FURO20TA4 PO; +GABA300C PO; +ICOS1CAP PO; -NAPR-56 PO; -NYSPWD TP; -OMEG-220 PO; -ONDA8TAB6 PO; -PRE1T PO; -TELM80TA9 PO
[2024-02-22 11:51] LABS: BASOPHILS # (AUTO) 0.1 X10'3 (0-0.2); BASOPHILS % (AUTO) 1.4 % (0-1); EOSINOPHILS # (AUTO) 0.4 X10'3 (0-0.9); EOSINOPHILS % (AUTO) 3.9 % (0-6); HEMATOCRIT 33.1 % (35.0-45.0); HEMOGLOBIN 10.8 g/dl (12.0-16.0); LYMPHOCYTES % (AUTO) 42.2 % (21-51); MEAN CORPUSCULAR HEMOGLOBIN 34.4 PG (27.0-31.0); MEAN CORPUSCULAR HGB CONC 32.6 g/dL (33.0-36.5); MEAN CORPUSCULAR VOLUME 105.8 FL (78-98); MEAN PLATELET VOLUME 8.1 FL (7.4-10.4); MONOCYTES % (AUTO) 10.2 % (2-12); NEUTROPHILS % (AUTO) 42.3 % (42-75); PLATELET COUNT 374 X10'3 (140-440); RED BLOOD COUNT 3.13 X10'6 (4.20-5.60); RED CELL DISTRIBUTION WIDTH 17.3 % (11.5-14.5); WHITE BLOOD COUNT 9.4 X10'3 (4.5-11.0)
[2024-02-22 12:02] LABS: ANION GAP 6 (8-16); BLOOD UREA NITROGEN 46 MG/DL (7-18); BUN/CREATININE RATIO 32.9 (10.0-20.0); CALCIUM 9.6 MG/DL (8.5-10.1); CHLORIDE 103 MMOL/L (99-107); GLUCOSE 132 MG/DL (70-104); POTASSIUM 4.9 MMOL/L (3.5-5.1); SODIUM 133 MMOL/L (135-145); TOTAL CARBON DIOXIDE 24.3 MMOL/L (24-32); eCRCL 27 ML/MIN; eGFR 36 ML/MIN
[2024-02-22 13:28] LABS: BILIRUBIN,URINE NEGATIVE (Neg); CLARITY,URINE CLOUDY (Clear); COLOR,URINE YELLOW (Yellow); GLUCOSE, URINE NEGATIVE (Neg); KETONES,URINE NEGATIVE (Neg); LEUKOCYTE ESTERASE ,URINE NEGATIVE (Neg); NITRITES, URINE POSITIVE (Neg); OCCULT BLOOD,URINE MODERATE (Neg); PROTEIN,URINE 30 mg/dl (Neg); UROBILINOGEN,URINE 0.2 E.U/dL (0.2-1.0)
[2024-02-22 14:00] LABS: SQUAMOUS EPITHELIAL CELL,UR MANY /LPF (FEW); UA COLLECTION TYPE CLN CATCH MIDSTREAM
[2024-02-22 14:01] LABS: RBC,URINE 20-50 /HPF (0-2)
[2024-02-22 14:02] LABS: BACTERIA,URINE FEW /HPF (Neg); WBC CLUMPS,URINE MODERATE /HPF (NEGATIVE); WBC,URINE 30-50 /HPF (0-4)
[2024-02-22] MEDS ORDERED: CEPH-585 PO (15:33)
[2024-02-22] MEDS: CefTRIAXone 1000mg IM Kit (w/lidocaine diluent) IM ONE (15:46)
[2024-02-22 16:04] VITALS: BP 158/84; PULSE 72; RESP 18; TEMP 98.6; O2SAT 96
== END 2024-02-22 16:07 | disposition home or self-care (01) ==
LOC: ER 11:17
DX: N39.0 Urinary tract infection, site not specified (principal); I10 Essential (primary) hypertension; E11.9 Type 2 diabetes mellitus without complications; E78.00 Pure hypercholesterolemia, unspecified; Z79.899 Other long term (current) drug therapy; Z79.4 Long term (current) use of insulin
CPT/HCPCS: 36415; 71045; 80048; 81001; 83605; 84145; 85025; 87040; 96372; 99285; J0696

== ENCOUNTER 2024-04-11 08:49 | Emergency (ER) | payer MEDICARE, MEDICAID ==
[~2024-04-11] VITALS: Ht 162.6 cm; Wt 95.5 kg
[~2024-04-11 08:49] MED LIST changes: +CEPH-585 PO
[2024-04-11] MEDS: normal saline 1000ml 1,000 ML IV ONE (09:03)
[2024-04-11] MEDS: ondansetron/PF 4mg/2ml inj IV ONE (09:03)
[2024-04-11 09:18] LABS: BASOPHILS % (AUTO) 0.2 % (0-1); EOSINOPHILS # (AUTO) 0.1 X10'3 (0-0.9); EOSINOPHILS % (AUTO) 0.6 % (0-6); HEMATOCRIT 36.4 % (35.0-45.0); LYMPHOCYTES # (AUTO) 1.3 X10'3 (1.1-4.8); LYMPHOCYTES % (AUTO) 14.7 % (21-51); MEAN CORPUSCULAR HEMOGLOBIN 33.6 PG (27.0-31.0); MEAN CORPUSCULAR HGB CONC 32.9 g/dL (33.0-36.5); MEAN PLATELET VOLUME 6.9 FL (7.4-10.4); MONOCYTES # (AUTO) 0.2 X10'3 (0-0.9); MONOCYTES % (AUTO) 2.5 % (2-12); NEUTROPHILS # (AUTO) 7.4 X10'3 (1.8-7.7); PLATELET COUNT 348 X10'3 (140-440); RED BLOOD COUNT 3.57 X10'6 (4.20-5.60); RED CELL DISTRIBUTION WIDTH 14.8 % (11.5-14.5)
[2024-04-11 09:36] LABS: ALANINE AMINOTRANSFERASE 30 U/L (12-78); ALBUMIN 2.5 G/DL (3.4-5.0); ALBUMIN/GLOBULIN RATIO 0.6 (1.1-1.5); ALKALINE PHOSPHATASE 146 IU/L (46-116); ANION GAP 9 (8-16); ASPARTATE AMINO TRANSFERASE 20 U/L (10-37); BILIRUBIN,TOTAL 0.4 MG/DL (0.1-1.0); BLOOD UREA NITROGEN 29 MG/DL (7-18); BUN/CREATININE RATIO 30.2 (10.0-20.0); CALCIUM 9.3 MG/DL (8.5-10.1); CHLORIDE 104 MMOL/L (99-107); CREATININE 0.96 MG/DL (0.40-0.90); GLUCOSE 207 MG/DL (70-104); POTASSIUM 4.3 MMOL/L (3.5-5.1); SODIUM 136 MMOL/L (135-145); TOTAL CARBON DIOXIDE 23.1 MMOL/L (24-32); eCRCL 40 ML/MIN; eGFR 56 ML/MIN
[2024-04-11] MEDS ORDERED: iohexol 300mg/ml 100ml inj. ONE (10:10)
[2024-04-11 11:22] LABS: BILIRUBIN,URINE NEGATIVE (Neg); CLARITY,URINE CLOUDY (Clear); COLOR,URINE STRAW (Yellow); GLUCOSE, URINE NEGATIVE (Neg); KETONES,URINE NEGATIVE (Neg); LEUKOCYTE ESTERASE ,URINE SMALL (Neg); NITRITES, URINE POSITIVE (Neg); OCCULT BLOOD,URINE MODERATE (Neg); PH,URINE 6.5 (4.8-8.0); PROTEIN,URINE 100 mg/dl (Neg); UROBILINOGEN,URINE 0.2 E.U/dL (0.2-1.0)
[2024-04-11 11:30] LABS: UA COLLECTION TYPE NON-SPECIFIED
[2024-04-11 11:31] LABS: BACTERIA,URINE 4+ /HPF (Neg); SQUAMOUS EPITHELIAL CELL,UR FEW /LPF (FEW); WBC,URINE TNTC /HPF (0-4)
[2024-04-11 11:33] LABS: RBC,URINE 20-50 /HPF (0-2)
[2024-04-11] MEDS: morphine 4 MG/ML inj SYRINge IV ONE ×2 (12:42→16:29)
[2024-04-11] MEDS: piperacillin/tazo 3.375gm/50ml 50 ML IV ONE (12:42)
[2024-04-11] MEDS: normal saline 1000ml 1,000 ML IV SCH (19:29)
[2024-04-11] MEDS: acetaminophen 325mg tablet PO ONE (19:59)
[2024-04-12] MEDS: piperacillin/tazo 3.375gm/50ml 50 ML IV SCH (00:27)
[2024-04-12 04:45] VITALS: BP 135/60; PULSE 95; RESP 16; TEMP 99; O2SAT 95
== END 2024-04-12 04:49 | disposition short-term general hospital (02) ==
LOC: ER 08:50
DX: K52.9 Noninfective gastroenteritis and colitis, unspecified (principal); N73.8 Other specified female pelvic inflammatory diseases; E78.00 Pure hypercholesterolemia, unspecified; I10 Essential (primary) hypertension; E11.9 Type 2 diabetes mellitus without complications; Z79.899 Other long term (current) drug therapy; Z79.2 Long term (current) use of antibiotics; Z79.4 Long term (current) use of insulin
CPT/HCPCS: 36415; 71045; 74177; 80053; 81001; 82948; 83605; 84484; 85025; 87040; 87077; 87088; 87186; 93005; 96361; 96365; 96366; 96375; 96376; 99285; A6213; J2270; J2405; J2543; J7030; Q9967

== ENCOUNTER 2024-09-05 22:39 | Emergency (ER) | payer MEDICARE, MEDICAID ==
[~2024-09-05] VITALS: Ht 162.6 cm; Wt 89.5 kg
[2024-09-05 22:50] VITALS: TEMP 98.4
[2024-09-06] MEDS: acetaminophen 1,000mg/100ml IV 100 ML IV ONE (00:06)
[2024-09-06 00:09] VITALS: BP 147/73; PULSE 70; RESP 18; O2SAT 97
== END 2024-09-06 00:30 | disposition home or self-care (01) ==
LOC: ER 22:39
DX: S00.93XA Contusion of unspecified part of head, initial encounter (principal); S09.90XA Unspecified injury of head, initial encounter; E11.9 Type 2 diabetes mellitus without complications; E78.00 Pure hypercholesterolemia, unspecified; I10 Essential (primary) hypertension; M06.9 Rheumatoid arthritis, unspecified; W19.XXXA Unspecified fall, initial encounter; Y93.89 Activity, other specified; Y92.89 Other specified places as the place of occurrence of the external cause; Y99.8 Other external cause status
CPT/HCPCS: 70450; 72125; 93005; 96374; 99285; J0131